=== PATIENT | male | born 1955 | race Caucasian/White ===

== ENCOUNTER 2022-01-29 05:48 | Day surgery (SDC) | payer BC ==
--- NOTE | 2022-01-28 16:56 | RAD REPORT ---
EXAM DESCRIPTION: Nati Delatorre (2 Views)01/28/2022 4:40 pm CLINICAL HISTORY: Preop for hernia repair COMPARISON: 2017 FINDINGS: The lungs appear clear of acute infiltrate. The heart is normal size. Postsurgical changes involve the chest IMPRESSION: No acute abnormalities displayed
[2022-01-28 17:03] LABS: Absolute Lymphocytes (CBC) 1.8 K/uL (0.7-4.9); Hematocrit 47.2 % (39.6-49.0); Lymphocytes % 24.9 % (15.3-44.8); MCV 95.4 fL (80-100); RBC Red Blood Cell Count 4.95 M/uL (4.33-5.43)
[2022-01-28 17:16] LABS: Potassium 4.1 mmol/L (3.5-5.1)
[2022-01-29] MEDS ORDERED: NA CHLORIDE 0.9% 1,000 ML ONE (06:43)
[2022-01-29] MEDS: CEFAZOLIN SODIUM 1 GM/VIAL ONE ×2 (07:07→07:30)
[2022-01-29] MEDS: BUPIVACAINE 0.5% Inj,MDV 50 mL VIAL ONE ×2 (07:07→07:48)
[2022-01-29] MEDS ORDERED: propofoL 200 MG/20 ML VIAL IV ONE (07:09)
[2022-01-29] MEDS ORDERED: LIDOCAINE 1% MPF 5 ML VIAL ONE (07:10)
[2022-01-29] MEDS ORDERED: MIDAZOLAM HCL 2 MG/2 ML INJ ONE (07:10)
[2022-01-29] MEDS ORDERED: FENTANYL CITR 100 MCG/2 ML ONE (07:10)
[2022-01-29] MEDS ORDERED: NS 0.9% VIAL 10 ML ONE (07:33)
[2022-01-29] MEDS ORDERED: dexAMETHasone 10 MG/ML VIAL ONE (07:46)
[2022-01-29] MEDS ORDERED: KETOROLAC 30 MG/ML INJ ONE (07:46)
[2022-01-29] MEDS ORDERED: ONDANSETRON 4 MG/2 ML VIAL ONE ×2 (08:22→09:41)
[2022-01-29] MEDS ORDERED: Mastisol Adhesive Liq ONE (08:42)
[2022-01-29] MEDS ORDERED: HYDROCODONE/APAP 7.5/325 MG TAB PO PRN (08:49)
--- NOTE | 2022-01-29 08:57 | P.OP ---
Date of Service: 01/29/22 Preop diagnosis: Left inguinal hernia Postop diagnosis: Same Procedure performed: Repair of left inguinal hernia Surgeon: Palmer Riddle MD Furniture Mechanic: TIFFANY Fitzpatrick Estimated blood loss: Minimal Specimen: None Findings: Direct left inguinal hernia Anesthesia: General Complications: None Drains: None Fluids and blood products: Non-applicable Disposition: Recovery room Operative note: Patient brought to the OR and placed in the supine position. General anesthesia begun. Patient prepped and draped in the usual sterile fashion. Marcaine 0.5% infiltrated in a field block fashion in the left groin. 15 blade used to make a 4 cm incision between the left pubic tubercle and the anterior iliac superior spine. Subcutaneous tissue identified and divided. Bleeding controlled with cautery. Kg's fascia identified and divided. Ilioinguinal nerve identified and retracted out of the field of dissection. Aponeurosis of the external abdominal oblique identified and mobilized inferiorly to expose the shelving edge. Aponeurosis opened through the external ring. The aponeurosis was very attenuated. Cord structures identified at the pubic tubercle and mobilized. Cord structures skeletonized and a large direct inguinal hernia was identified. The direct hernia was reduced into the peritoneal cavity. Floor was recreated. The conjoined tendon was sutured to the shelving edge starting at the pubic tubercle to create a new internal ring with #1 Prolene suture. Marlex mesh plug placed in the internal ring and secured with VersaTack stapler. Onlay mesh placed on the inguinal floor secured medially to the pubic tubercle, superiorly to the conjoined tendon, laterally to each other and inferiorly to the shelving edge. Cord structures and ilioinguinal nerve placed back in their anatomic location. As the aponeurosis was attenuated it was not closed. 3-0 chromic was used to close Kg's fascia. And 3-0 chromic was used to close skin. Sterile dressing applied. Patient awakened and taken to recovery room in good general condition. CC: Dr. Mady Griggs's office
[2022-01-29] MEDS ORDERED: PROMETHAZINE INJ 25 MG/ML AMP ONE (09:18)
[2022-01-29 09:19] VITALS: TEMP 97.1
[2022-01-29 12:59] VITALS: BP 136/54; O2SAT 95
== END 2022-01-29 12:55 | disposition home or self-care (01) ==
LOC: PRE 05:48
PROVIDERS: ATTEND Surgery
PROC: 0YU60JZ Supplement Left Inguinal Region with Synthetic Substitute, Open Approach (ICD-10-PCS; principal; 2022-01-29 07:30)
DX: K40.90 Unilateral inguinal hernia, without obstruction or gangrene, not specified as recurrent (principal)
CPT/HCPCS: 85025; 80048; 36415; 82947 ×2; 71046; 49505; J2704; J2550; J2250; J3010; J1100; J7030; J2405 ×2; J0690

== ENCOUNTER 2022-08-12 13:25 | Inpatient (IN) | payer BC ==
[2022-08-12 14:05] LABS: SARS-CoV-2 Antigen Rapid Res Negative (Negative)
--- OUTSIDE RECORDS SUMMARY | 2022-08-12 14:44 | XMS REPORT | Continuity of Care Document ---
:1955 Author Organization [facility] t Address [address] [place] [address] Care Team Providers Name Role Phone Mady Menchaca MD Primary Care Physician Mady Menchaca Attending Clinician Unavailable RALPH MANCIA Attending Clinician Unavailable PANCHITO AQUINO Attending Clinician Unavailable MADY MENCHACA Attending Clinician Unavailable LAB90 Attending Clinician Unavailable HELENA SOSA Attending Clinician Unavailable DEVON AVELAR Attending Clinician Unavailable KERON VANG Attending Clinician Unavailable KERON VANG Admitting Clinician Unavailable Payers Payer Name Policy Type Policy Number Effective Date Expiration Date [facility] 2 [id number] 2020 00:00:00 [employer] 6 [id number] Common Spiri t Blue Shield of - [facility] Problems Condition Condition Condition Status Onset Resolution Last Treating Co mments Source Name Details Category Date Date Treatment Clinician Date Subperiost Subperiost Disease Active K elsey eal eal 1-19 Seybold abscess of abscess of 00:00: - left left 00 Externa mastoid mastoid l Facial Facial Disease Active Vicenta cellulitis cellulitis 08-12 Se ybold 00:00: - 00 Externa l Statin Statin Disease Active Vicenta intoleranc intoleranc 08-12 Se ybold e e 00:00: - 00 Externa l PVD PVD Disease Active Vicenta (periphera (periphera 04-02 Se ybold l vascular l vascular 00:00: - disease) disease) 00 Uat Tester a l Allergic Allergic Disease Active Kelse y rhinitis rhinitis 18 Seybol d 00:00: - 00 Externa l Essential Essential Disease Active Vu y hypertensi hypertensi 618 Se ybold on - on - 00:00: - Controlled Controlled 00 Ex terna l Persistent Persistent Disease Active M ethodi atrial atrial 17 st fibrillati fibrillati 00:00: Ho spita on on l Morbid Morbid Disease Active 2016-[address] [facility] obesity obesity 1-26 [facility] with BMI with BMI 00:00: Medica l of of 00 Center 40.0-44.9, 40.0-44.9, adult adult Pericardia Pericardia Disease Active 2016-[address] l effusion l effusion - Carmella kes 00:00: Medical 00 Center Atrial Atrial Disease Active 2016-[address] [facility] flutter flutter - [facility] Acute Acute Disease Active 2016-[address] [facility] pulmonary pulmonary 08-16 [facility] edema edema 00:00: Medical 00 Center Acute Acute Disease Active 2016-[address] [facility] postoperat postoperat 08-15 Carmella kes jeff pain jeff pain 00:00: Medica l 00 Center Prerenal Prerenal Disease Active 2016-07 [facility] azotemia azotemia 08[facility]15 [facility] Center Thrombocyt Thrombocyt Disease Active 2016-[address] openia openia 08-15 [facility] Center SIRS SIRS Disease Active 2016-[address] [facility] (systemic (systemic 08-15 [facility] inflammato inflammato 00:00: Me dical ry ry 00 Center response response syndrome) syndrome) ACB x 3 ACB x 3 Disease Active 2016-[address] (06.13.17) (06.13.17) 08-[address] Taj Vang 00:00: Medical 00 Center Other Other Disease Active 2016-[address] [facility] specified specified 08-13 [facility] s hypotensio hypotensio 00:00: Me dical n n 00 Center Postoperat Postoperat Disease Active 2016-[address] jeff anemia jeff anemia 08-13 Carmella kes due to due to 00:00: Medical acute acute 00 Center blood loss blood loss Hyperglyce Hyperglyce Disease Active 2016-[address] segundo segundo 08-13 [facility] Acute Acute Disease Active 2016-[address] [facility] pulmonary pulmonary 08-13 [facility] insufficie insufficie 00:00: Me dical ncy ncy 00 Center following following thoracic thoracic surgery surgery Lactic Lactic Disease Active 2016-[address] [facility] acidosis acidosis 08-13 [facility] 00 Center Other Other Disease Active 2016-[address] [facility] [facility] shock shock 08-13 [facility] (HCC) (HCC) 00:00: Medical vasoplegic vasoplegic 00 Ce nter shock shock [id number] Epididymal Problem Co mmon mass [facility] [id number] Nodular Problem Comm on prostate [facility] [id number] Peyronie's Problem Comm on disease [facility] DM type 2 DM type 2 Disease Active Vu sey with with Seybold diabetic diabetic - mixed mixed Externa hyperlipid hyperlipid l emia emia Hyperchole Hyperchole Disease Active K elsey sterolemia sterolemia Se ybold - Externa l Coronary Coronary Disease Active [facility] artery artery [facility] Sleep Sleep Disease Active [facility] apnea apnea [facility] CPAP CPAP Disease Active [facility] (continuou (continuou Carmella kes s positive s positive Me dical airway airway Center pressure) pressure) dependence dependence Hypertensi Hypertensi Disease Active [facility] on on [facility] Atrial Atrial Disease Active [facility] fibrillati fibrillati Carmella kes on with on with Medical rapid rapid Center ventricula ventricula r response r response Hyperlipid Hyperlipid Disease Active [facility] emia emia [facility] Diabetes Diabetes Disease Active [facility] t mellitus mellitus [facility] type 2, type 2, Medical noninsulin noninsulin Ce nter dependent dependent GERD GERD Disease Active [facility] St (gastroeso (gastroeso Carmella kes phageal phageal Medical reflux reflux Center disease) disease) Obesity Obesity Disease Active [facility] Allergies, Adverse Reactions, Alerts Allergy Allergy Status Severity Reaction(s) Onset Inactive Treating Comm ents Source Name Type Date Date Clinician Simgenesis Garzaensi Active Rash Method i tin ty to 09-30 st adverse 00:00: Hospita reaction 00 l s to drug Metformi Propensi Active Diarrhea 2016-[address] [facility] n ty to 08-07 [facility] adverse 00:00: Medical reaction 00 Center s Simvasta Propensi Active Hives 2016-[address] [facility] [facility] tin ty to 08-07 [facility] adverse 00:00: Medical reaction 00 Center s Simvasta Propensi Active Rash 2016-07 Vicenta tin ty to 08-07 Seybold adverse 00:00: - reaction 00 Externa s l simvasta simvasta Active Unknown Commo n tin tin Spirit - [facility] Family History Family Member Diagnosis Comments Start Date Stop Date Source Natural father Cancer [facility] Natural father Coronary artery [facility] disease [facility] Natural father Diabetes [facility] Social History Social Habit Start Date Stop Date Quantity Comments Source History of Tobacco [facility] Use [facility] History [facility] Alcohol Frequency Medical Center History [facility] Alcohol Std Drinks Medica Center History [facility] Alcohol Binge Medical [address] [facility] Education 2022-08-12 2022-08-12 16 Vicenta Andinoold - 00:00:00 00:00:00 External Alcohol intake 2017-08-02 2017-08-02 Current drinker [facility] 00:00:00 00:00:00 of alcohol Medical Center (finding) History SDOH 2017-06-07 2017-06-[address] [facility] Alcohol Comment 00:00:00 00:00:00 Medical C enter Tobacco use and 2017-06-07 2017-06-07 Never used ZABRINA Veras exposure 00:00:00 00:00:00 Medical Center Sex [birth year] ZABRINA Veras 00:00:00 00:00:00 Medical Center Smoking Status Start Date Stop Date Source Never smoked tobacco Vicenta Seyb old - External Medications Ordered Filled Start Stop Current Ordering Indication Dosage Frequency Signature Comments Components Source Medication Medication Date Date Medication? Clinician (SIG) Name Name Aspirin 81 Yes 81mg Take 81 mg K elsey MG oral 1-19 by mouth Seybold Tablet 11:51: daily - Delayed 25 Externa Response l Multiple Yes 1{tbl} Take 1 Kelse y Vitamin 1-19 tablet by Darlene (Multi-Radha 10:57: mouth - min) oral 35 daily Externa Tablet l Cholecalcif Yes 1{capsu Take 1 K elsey ramses 50 MCG 1-19 le} capsule by Se staley (1999) 10:57: mouth - oral 35 daily Externa Capsule l Metoprolol Yes [id number] 50mg Take 1 K elsey Succinate 1-19 tablet (50 Seyb old 50 MG oral 00:00: mg total) - TABLET SR 00 by mouth Uat Tester a 24 HR daily l Furosemide Yes [id number] 20mg Take 1 K elsey 20 MG oral 1-19 tablet (20 Sey bold Tablet 00:00: mg total) - 00 by mouth Externa daily l Metformin Yes [id number] Every Vu sey HCl 500 MG -19 Tuesday, Seybol d oral Tablet 00:00: Tuesday - and Tuesday Externa l Metformin 2021-07- No [id number] 500mg Take 1 Vicenta HCl 500 MG 0-17 08- tablet Seybol d oral Tablet 00:00: 00:00 (500 mg - 00 :00 total) by Externa mouth l daily (with breakfast) Trulicity 2022- No [id number] .75mg Inject Vicenta 0.75 04-06- 0.75 mg Seybold MG/0.5ML 00:00: 00:00 into the - subcutaneou 00 :00 skin once Ext sandip s Solution a week l Pen-injecto r Metoprolol 2021-0 2022- No [id number] 50mg Take 1 Vicenta Succinate 7-13 - tablet (50 Sey bold 50 MG oral 00:00: 00:00 mg total) - TABLET SR 00 :00 by mouth 2 Exte rna 24 HR times l daily Jardiance 0 Yes [id number] TAKE ONE Vicenta 25 MG oral 5-11 BY MOUTH Seybo ld Tablet 00:00: DAILY - 00 Externa l Furosemide 2021-0 2022- No [id number] TAKE TWO Vicenta 20 MG oral 5-11 -19 BY MOUTH Seyb old Tablet 00:00: 00:00 DAILY - 00 :00 Externa l Pravastatin 0 Yes 10mg Take 10 mg Vicenta Sodium 10 3-09 by mouth Seybol d MG oral 08:09: daily Tablet 28 Vitamin E Yes 400U Take 400 Patty ey 400 units 3-09 units by Seybol d oral 08:09: mouth Capsule 28 daily Multiple Yes 1{tbl} Take 1 Kelse y Vitamin 3-09 tablet by ybjosafat (Multi-Radha 08:09: mouth min) oral 28 daily Tablet Cholecalcif Yes 1{capsu Take 1 K elsey ramses 50 MCG 3-09 le} capsule by Se staley (1999) 08:09: mouth oral 28 daily Capsule Pravastatin 2020-07 Yes 10mg Take 10 mg Vicenta Sodium 10 2-02 by mouth Seybol d MG oral 08:05: daily Tablet 22 Vitamin E 2020-07 Yes 400U Take 400 Patty ey 400 units 2-02 units by Seybol d oral 08:05: mouth Capsule 22 daily Multiple 2020-07 Yes 1{tbl} Take 1 Kelse y Vitamin 2-02 tablet by ybold (Multi-Radha 08:05: mouth min) oral 22 daily Tablet Cholecalcif 2020-07 Yes 1{capsu Take 1 K elsey ramses 50 MCG 2-02 le} capsule by Se staley (1999) 08:05: mouth oral 22 daily Capsule Omeprazole 0 Yes [id number] 20mg Take 1 Vicenta 20 MG oral 6-18 capsule Seybol d Delayed 00:00: (20 mg - Release 00 total) by Externa Capsule mouth l daily Cetirizine Yes [id number] 10mg Take 1 K elsey 10 MG oral 6-18 tablet (10 Sey bold Tablet 00:00: mg total) 00 by mouth daily Empaglifloz Yes [id number] 1{tbl} Take 1 Vicneta in 6-18 tablet by Seybold (Jardiance) 00:00: mouth 25 MG oral 00 daily Tablet Furosemide Yes [id number] 40mg Take 2 K elsey 20 MG oral 6-18 tablets Seybol d Tablet 00:00: (40 mg 00 total) by mouth daily Losartan Yes [id number] 50mg Take 1 Vu sey Potassium 6-18 tablet (50 Seyb old 50 MG oral 00:00: mg total) Tablet 00 by mouth daily Metoprolol Yes [id number] 50mg Take 1 K elsey Succinate 6-18 tablet (50 Seyb old 50 MG oral 00:00: mg total) TABLET SR 00 by mouth 2 24 HR times daily Omeprazole Yes [id number] 20mg Take 1 Vicenta 20 MG oral 6-18 capsule Seybol d Delayed 00:00: (20 mg Release 00 total) by Capsule mouth daily Pravastatin Yes [id number] 20mg Take 1 Vicenta Sodium 20 6-18 tablet (20 Seyb old MG oral 00:00: mg total) Tablet 00 by mouth 2 times daily Cetirizine Yes [id number] 10mg Take 1 K elsey 10 MG oral 6-18 tablet (10 Sey bold Tablet 00:00: mg total) 00 by mouth daily Empaglifloz Yes [id number] 1{tbl} Take 1 Vicenta in 6-18 tablet by Seybold (Jardiance) 00:00: mouth 25 MG oral 00 daily Tablet Furosemide Yes [id number] 40mg Take 2 K elsey 20 MG oral 6-18 tablets Seybol d Tablet 00:00: (40 mg 00 total) by mouth daily Losartan Yes [id number] 50mg Take 1 Vu sey Potassium 6-18 tablet (50 Seyb old 50 MG oral 00:00: mg total) Tablet 00 by mouth daily Metoprolol Yes [id number] 50mg Take 1 K elsey Succinate 6-18 tablet (50 Seyb old 50 MG oral 00:00: mg total) TABLET SR 00 by mouth 2 24 HR times daily Omeprazole Yes [id number] 20mg Take 1 Vicenta 20 MG oral 6-18 capsule Seybol d Delayed 00:00: (20 mg Release 00 total) by Capsule mouth daily Pravastatin Yes [id number] 20mg Take 1 Vicenta Sodium 20 -18 tablet (20 Seyb old MG oral 00:00: mg total) Tablet 00 by mouth 2 times daily Cetirizine 2022- No [id number] 10mg Take 1 Vicenta 10 MG oral -18 -19 tablet (10 Se ybold Tablet 00:00: 00:00 mg total) - 00 :00 by mouth Externa daily l Pravastatin 2022- No [id number] 20mg Take 1 Vicenta Sodium 20 -18 - tablet (20 Sey bold MG oral 00:00: 00:00 mg total) - Tablet 00 :00 by mouth 2 Externa times l daily apixaban Yes 5mg Q.5D Take 5 mg Meth jim (ELIQUIS) 5 -[address] mg tablet 09:46: (two) Hospita 53 times a l day. furosemide Yes 20mg QD Take 20 mg M ethodi (LASIX) 20 -[address] mg tablet 09:46: daily. Hospit a 53 l terbinafine 2018-0 Yes QD Apply Metho di HCl [address] (LamISIL) 1 09:46: daily. Hosp rogelio % cream 53 l pravastatin 2018-0 Yes 10mg QD Take 10 mg Methodi (PRAVACHOL) [address] 10 MG 09:46: daily. Hospita tablet 53 l cetirizine 2018-0 Yes 10mg QD Take 10 mg M ethodi (ZyrTEC) 10 -[address] MG tablet 09:46: daily. Hospit a 53 l losartan 2019-0 Yes 50mg QD Take 50 mg Met hodi (COZAAR) 50 -[address] MG tablet 09:46: daily. Hospit a 53 l CALCIUM Yes 1{tbl} QD Take [address] CITRATE/VIT - tablet by Jeannie patel FUNG D3 07:17: mouth Medical (CALCIUM 47 daily. [place] CITRATE + D ORAL) metoprolol Yes 50mg Q.5D Take [address] (TOPROL-XL) 08-02 by mouth 2 Carmella kes 50 MG 24 hr 07:15: (two) Medic al tablet 54 times Center daily. omeprazole Yes 20mg QD Take [address] (PRILOSEC) 08-02 by mouth [facility] 20 MG 07:15: daily. Medical capsule 54 [place] cetirizine Yes 10mg Take [address] (ZYRTEC) 10 08-02 by mouth Luke s MG tablet 07:15: as needed Med ical 54 for Center Allergies. multivitami Yes 1{tbl} QD Take [address] n per 08-02 tablet by Letty tablet 07:15: mouth Medical 54 daily. [place] FERROUS Yes 1{capsu QD Take 1 [facility] t FUMARATE/ - le} capsule by Carmella fischer T BCOMP,C 07:15: mouth Medical (SUPER B 54 daily. [place] COMPLEX ORAL) ascorbic Yes 1000mg QD Take 1,[address] acid, 1-09 mg by Letty vitamin C, 07:15: mouth Medica l (VITAMIN C) 54 daily. [place] 1000 MG tablet cholecalcif Yes 1{capsu QD Take [address] ramses, 08-02 le} capsule by Letty vitamin D3, 07:15: mouth Medic al (VITAMIN 54 daily. [place] D3) 2,000 unit Cap vitamin E Yes 400U QD Take [address] 400 UNIT 1-09 Units by aCrmellaSalemarked capsule 07:15: mouth Medical 54 daily. [place] glucosam-ch Yes 1{tbl} QD Take [address] ond-msm1-C- 08-02 tablet by Jeannie patel nighat-bor 07:15: mouth Medical [id number]- 54 daily. [place] 1 mg Tab KRILL/OM-3/ Yes 1{capsu QD Take [address] DHA/EPA/SUSIE 1- le} capsule by Carmella fischer SPHO/AST 07:15: mouth Medical (MEGARED 54 daily. Center OMEGA-3 KRILL OIL ORAL) acetaminoph Yes Superficial 1{tbl} Take [address] en-codeine 1-09 postoperati tablet by Letty (TYLENOL 07:15: ve wound mouth Medi georges #3) 300-30 54 infection, every 4 Center mg per initial (four) tablet encounter hours as needed for Pain. acetaminoph Yes Superficial 500mg Take [address] en 1-09 postoperati mg by Letty (TYLENOL) 07:15: ve wound mouth Med ical 500 MG 54 infection, every 6 Cent er tablet initial (six) encounter hours as needed for Pain. pravastatin 2016-07 Yes 40mg QD Take [address] (PRAVACHOL) 2-01 tablets [facility] 20 MG 00:00: (40 mg Medical tablet 00 total) by Center mouth daily. CoQ-10 CoQ-10 No CoQ-10 Multivitami Multivitami No Multivitam n n in Metoprolol Metoprolol No 1{capsu QD Metoprolol Succinate Succinate le} Succinate 50 MG 50 MG 50 MG Furosemide Furosemide No 1{table QD Furosemide 40 MG 40 MG t} 40 MG Vitamin D3 Vitamin D3 No 1{capsu QD Vitamin D3 50 MCG 50 MCG le} 50 MCG (1999) (1999) (1999) Pennsaid Pennsaid No Pennsaid Aspirin 81 Aspirin 81 No 1{table QD Aspirin 81 MG MG t} MG Cetirizine Cetirizine No 1{table QD Cetirizine HCl 10 MG HCl 10 MG t} HCl 10 MG Krill Oil Krill Oil No Krill Oil 500 MG 500 MG 500 MG Omeprazole Omeprazole No QD Omeprazole 20 MG 20 MG 20 MG Super B Super B No Super B Complex Complex Complex Probiotic Probiotic No Probiotic Jardiance Jardiance No 1{table QD Jardiance 25 MG 25 MG t} 25 MG Pravastatin Pravastatin No 1{table BID Pravastati Sodium 20 Sodium 20 t} n Sodium MG MG 20 MG Metamucil Metamucil No Metamucil CoQ-10 CoQ-10 No CoQ-10 Multivitami Multivitami No Multivitam n n in Metoprolol Metoprolol No 1{capsu QD Metoprolol Succinate Succinate le} Succinate 50 MG 50 MG 50 MG Furosemide Furosemide No 1{table QD Furosemide 40 MG 40 MG t} 40 MG Vitamin D3 Vitamin D3 No 1{capsu QD Vitamin D3 50 MCG 50 MCG le} 50 MCG (1999 UT) (1999 UT) (1999) Pennsaid Pennsaid No Pennsaid Aspirin 81 Aspirin 81 No 1{table QD Aspirin 81 MG MG t} MG Cetirizine Cetirizine No 1{table QD Cetirizine HCl 10 MG HCl 10 MG t} HCl 10 MG Krill Oil Krill Oil No Krill Oil 500 MG 500 MG 500 MG Omeprazole Omeprazole No QD Omeprazole 20 MG 20 MG 20 MG Super B Super B No Super B Complex Complex Complex Probiotic Probiotic No Probiotic Jardiance Jardiance No 1{table QD Jardiance 25 MG 25 MG t} 25 MG Pravastatin Pravastatin No 1{table BID Pravastati Sodium 20 Sodium 20 t} n Sodium MG MG 20 MG Metamucil Metamucil No Metamucil Immunizations Ordered Immunization Filled Immunization Date Status Commen ts Source Name Name Influenza Virus 2022-05-17 Completed Vicenta ybold Vaccine, 00:00:00 - External Quadrivalent, High Dose, Age 65 And Up Influenza Virus 2021-03-27 Completed Vicenta ybold Vaccine, 00:00:00 - External Quadrivalent, High Dose, Age 65 And Up Influenza Virus 2021-03-27 Completed Vicenta ybold Vaccine, 00:00:00 Quadrivalent, High Dose, Age 65 And Up Influenza Virus 2021-03-27 Completed Vicenta ybold Vaccine, 00:00:00 Quadrivalent, High Dose, Age 65 And Up Covid-19 Vaccine 2020-09-17 Completed Vicenta ugarte Moderna (Spikevax), 00:00:00 - Ext ernal Mrna-lnp, Denis Protein, Pf Covid-19 Vaccine 2020-09-17 Completed Vicenta ugarte (Moderna), Mrna-lnp, 00:00:00 Denis Protein, Pf, 100 Mcg/0.5ml,IM Covid-19 Vaccine 2020-09-17 Completed Vicenta ugarte Moderna (Spikevax), 00:00:00 Mrna-lnp, Denis Protein, Pf Covid-19 Vaccine 2020-08-15 Completed Vicenta ugarte Moderna (Spikevax), 00:00:00 - Ext ernal Mrna-lnp, Denis Protein, Pf Covid-19 Vaccine 2020-08-15 Completed Vicenta Yang eybold (Moderna), Mrna-lnp, 00:00:00 Denis Protein, Pf, 100 Mcg/0.5ml,IM Covid-19 Vaccine 2020-08-15 Completed Vicenta Yang eybold Moderna (Spikevax), 00:00:00 Mrna-lnp, Denis Protein, Pf Influenza Virus 2019-04-30 Completed Vicenta Se ybold Vaccine, age 6 months 00:00:00 - E xternal and up Influenza Virus 2019-04-30 Completed Vicenta Se ybold Vaccine, age 6 months 00:00:00 and up Influenza Virus 2019-04-30 Completed Vicenta Se ybold Vaccine, age 6 months 00:00:00 and up Shingles SQ 2017-08-16 Completed Vicenta Seybol d (Zostavax) 00:00:00 - External Shingles SQ 2017-08-16 Completed Vicenta Seybol d (Zostavax) 00:00:00 Shingles SQ 2017-08-16 Completed Vicenta Seybol d (Zostavax) 00:00:00 Tdap- (Boostrix, 2017-07-11 Completed Vicenta S eybold Adacel) 00:00:00 - External Pneumococcal Vaccine, 2017-07-11 Completed Vu sey Seybold Polysaccharide 00:00:00 - External Tdap- (Boostrix, 2017-07-11 Completed Vicenta S eybold Adacel) 00:00:00 Pneumococcal Vaccine, 2017-07-11 Completed Vu sey Seybold Polysaccharide 00:00:00 Tdap- (Boostrix, 2017-07-11 Completed Vicenta S eybold Adacel) 00:00:00 Pneumococcal Vaccine, 2017-07-11 Completed Vu sey Seybold Polysaccharide 00:00:00 Influenza Virus 2017-05-10 Completed Vicenta Se ybold Vaccine, age 6 months 00:00:00 - E xternal and up Influenza Virus 2017-05-10 Completed Vicenta Se ybold Vaccine, No Preserv, 00:00:00 - Ex ternal age 6 months and up Influenza Virus 2017-05-10 Completed Vicenta Se ybold Vaccine, age 6 months 00:00:00 and up Influenza Virus 2017-05-10 Completed Vicenta staley Vaccine, No Preserv, 00:00:00 age 6 months and up Influenza Virus 2017-05-10 Completed Vicenta martinesold Vaccine, age 6 months 00:00:00 and up Influenza Virus 2017-05-10 Completed Vicenta staley Vaccine, No Preserv, 00:00:00 age 6 months and up Vital Signs Vital Name Observation Time Observation Value Comments Source Systolic blood 2022-08-12 16:56:00 145 mm[Hg] Vicenta Seybold - pressure External Diastolic blood 2022-08-12 16:56:00 86 mm[Hg] Joe dlol Seybold - pressure External Heart rate 2022-08-12 16:56:00 83 /min Vicentabhupendra floresbold - External Body temperature 2022-08-12 16:56:00 37.44 Irma Patty flores Seybjosafat - External Respiratory rate 2022-08-12 16:56:00 14 /min Patty flores Seybold - External Body height 2022-08-12 16:56:00 195.6 cm Vicenta floresbold - External Body weight 2022-08-12 16:56:00 136.986 kg Vicenta floresbold - External BMI 2022-08-12 16:56:00 35.81 kg/m2 Vicenta floresbomaty - External Oxygen saturation in 2022-08-12 16:56:00 97 /min Vicenta Leahyrebeka - Arterial blood by External Pulse oximetry weight 2022-05-19 15:30:00 291.2 [lb_av] Common [facility] temperature 2022-05-19 15:30:00 98.2 [degF] Common [facility] bmi 2022-05-19 15:30:00 36.39 kg/m2 [facility] oximetry 2022-05-19 15:30:00 99 % [facility] respiratory rate 2022-05-19 15:30:00 18 /min Comm on [facility] blood pressure 2022-05-19 15:30:00 125 mm[Hg] Common [facility] systolic [facility] blood pressure 2022-05-19 15:30:00 64 mm[Hg] [facility] diastolic [facility] height 2022-05-19 15:30:00 75 [in_i] Common S pirit - [facility] Systolic blood 2021-09-30 14:03:00 120 mm[Hg] Vicenta Seybold pressure Diastolic blood 2021-09-30 14:03:00 70 mm[Hg] Kelse y Seybold pressure Heart rate 2021-09-30 14:03:00 86 /min Vicenta S eybold Body temperature 2021-09-30 14:03:00 35.56 Rima Patty ey Seybold Respiratory rate 2021-09-30 14:03:00 14 /min Patty ey Seybold Body height 2021-09-30 14:03:00 195.6 cm Vicenta Yang eybold Body weight 2021-09-30 14:03:00 138.347 kg Vicenta Yang eybold BMI 2021-09-30 14:03:00 36.17 kg/m2 Vicenta S eybold Systolic blood 2021-06-25 14:00:00 112 mm[Hg] Vicenta Seybold pressure Diastolic blood 2021-06-25 14:00:00 58 mm[Hg] Kelse y Seybold pressure Heart rate 2021-06-25 14:00:00 66 /min Vicenta Yang eybold Body temperature 2021-06-25 14:00:00 36.44 Irma Patty ey Seybold Respiratory rate 2021-06-25 14:00:00 14 /min Patty ey Seybold Body height 2021-06-25 14:00:00 195.6 cm Vicenta Yang eybold Body weight 2021-06-25 14:00:00 136.986 kg Vicenta Yang eybold BMI 2021-06-25 14:00:00 35.81 kg/m2 Vicenta Yang eybold Procedures This patient has no known procedures. Plan of Care Planned Activity Planned Date Details Comments Source Future Scheduled 2022-08-12 COVID-19 VACCINE (#1) [facility] Test 10:49:44 [code = COVID-19 VACCINE (#1)] Future Scheduled 2022-08-12 [facility] 10:49:44 [code = COLONOSCOPY SCREENING] Future Scheduled 2022-08-12 SHINGLES VACCINES (1 Met [facility] Test 10:49:44 of 2) [code = SHINGLES VACCINES (1 of 2)] Future Scheduled 2022-08-12 65+ [facility]UMOCOCCAL [facility] Test 10:49:44 VACCINE (1 - PCV) [code = 65+ PNEUMOCOCCAL VACCINE (1 - PCV)] Future Scheduled 2022-08-12 INFLUENZA VACCINE [facility] Test 10:49:44 [code = INFLUENZA VACCINE] Encounters Start End Encounter Admission Attending Care Care Encounter Source Date/Time Date/Time Type Type Clinicians Facility Department ID 2022-06-23 Outpatient [place] [facility] [id number] Common 09:45:07 Mady [id number] [facility] 2022-05-20 Outpatient [place], [facility] [id number] 2 Common 07:21:00 Mady [id number] [facility] 2022-05-19 Outpatient [place] [facility] [id number] 2 Common 15:15:03 Mady [id number] [facility] 2022-08-12 2022-08-12 Outpatient VICENTA MANCIA [id number] Vicenta 11:45:00 11:45:00 RALPH davis 2022-08-12 2022-08-12 Outpatient VICENTA MANCIA [id number] Vicenta 00:00:00 00:00:00 RALPH davis 2022-08-02 2022-08-02 (TEL) STLMLC STL[facility]C [id number] Co mmon 00:00:00 00:00:00 [facility] 2022-05-19 2022-05-19 OFFICE [facility] [id number] Co mmon 00:00:00 00:00:00 VISIT NEW [facility] it PT LEVEL 4 [facility] 2022-05-17 2022-05-17 Outpatient VICENTA AQUINO [id number] [place] 08:00:00 08:00:00 PANCHITO davis 2022-04-28 2022-04-28 Outpatient VICENTA AQUINO [id number] [place] 00:00:00 00:00:00 PANCHITO Seybol d 2022-04-06 2022-04-06 Outpatient VICENTA MENCHACA [id number] [place] 00:00:00 00:00:00 MADY Seybol d 2022-04-05 2022-04-05 Outpatient VICENTA AQUINO [id number] [place] 00:00:00 00:00:00 PANCHITO Seybol d 2022-04-05 2022-04-05 Outpatient VICENTA AQUINO [id number] [place] 00:00:00 00:00:00 PANCHITO Seybol d 2022-04-05 2022-04-05 Outpatient VICENTA AQUINO [id number] [place] 00:00:00 00:00:00 PANCHITO Seybol d 2022-04-02 2022-04-02 Outpatient LAB90 VICENTA CERRATO [id number] [place] 09:15:00 09:15:00 Seybol d 2022-04-02 2022-04-02 Outpatient VICENTA MENCHACA [id number] [place] 08:15:00 08:15:00 MADY Seybol d 2022-04-02 2022-04-02 Outpatient VICENTA AQUINO [id number] [place] 08:00:00 08:00:00 PANCHITO Seybol d 2022-03-26 2022-03-26 Outpatient LAB90 VICENTA CERRATO [id number] [place] 08:20:00 08:20:00 Seybol d 2022-02-03 2022-02-03 Outpatient VICENTA MENCHACA [id number] [place] 00:00:00 00:00:00 MADY Seybol d 2022-01-21 2022-01-21 Outpatient VICENTA MENCHACA [id number] [place] 00:00:00 00:00:00 MADY Seybol d 2022-01-21 2022-01-21 Outpatient VICENTA MENCHACA [id number] [place] 00:00:00 00:00:00 MADY Seybol d 2022-01-13 2022-01-13 Office Devon Menchaca [id number] [place] 14:30:00 14:45:00 Visit Mady Smith [id number] Se ybold Somogyi [id number] 2022-01-11 2022-01-11 Outpatient VICENTA SOSA [id number] [place] 08:30:00 08:30:00 HELENA Seybol d 2021-12-31 2021-12-31 Outpatient DEVON AVELAR VICENTA CERRATO [id number] [place] 16:15:00 16:15:00 Seybol d 2021-12-31 2021-12-31 Outpatient VICENTA MENCHACA [id number] [place] 00:00:00 00:00:00 MADY Seybol d 2021-12-09 2021-12-09 Outpatient VICENTA MENCHACA [id number] [place] 00:00:00 00:00:00 MADY Seybol d 2021-10-01 2021-10-01 Outpatient VICENTA MENCHACA [id number] [place] 08:00:00 08:00:00 MADY Seybol d 2021-09-30 2021-09-30 Outpatient LAB90 VICENTA CERRATO [id number] [place] 08:30:00 08:30:00 Seybol d 2021-09-30 2021-09-30 Office Devon Menchaca [id number] [place] 08:00:00 08:15:00 Visit Mady Smith [id number] Se ybold Somogyi [id number] 2021-09-28 2021-09-28 Outpatient LAB90 VICENTA CERRATO [id number] [place] 08:05:00 08:05:00 Seybol d 2021-09-28 2021-09-28 Outpatient VICENTA MENCHACA [id number] [place] 00:00:00 00:00:00 MADY Seybol d 2021-09-22 2021-09-22 Outpatient VICENTA MENCHACA [id number] [place] 08:30:00 08:30:00 MADY Seybol d 2021-06-25 2021-06-25 Office Devon Menchaca [id number] [place] 08:00:00 08:30:00 Visit Mady Smith [id number] Se rebeka Mercado [id number] 2021-06-23 2021-06-23 Outpatient LAB90 VICENTA CERRATO [id number] [place] 08:05:00 08:05:00 Seybol d 2021-03-27 2021-03-27 Outpatient VICENTA MENCHACA [id number] [place] 08:00:00 08:00:00 MADY Seybol d 2021-03-06 2021-03-06 Outpatient LAB90 VICENTA CERRATO [id number] [place] 08:10:00 08:10:00 Seybol d 2021-03-02 2021-03-02 Outpatient VICENTA MENCHACA [id number] [place] 08:00:00 08:00:00 MADY Seybol d Results Test Description Test Time Test Comments Results Result Comments Source WOUND CULTURE + GRAM STAIN 2017-07-30 08:55:00 Test Item Value Reference Range Interpretation Comme nts CULTURE ([facility]) (test code = 1095) 2+ Skin pramod GRAM STAIN RESULT (BEAKER) (test code = 1123) 1+ WBCs GRAM STAIN RESULT (AKER) (test code = 79916) No organisms seen WOUND CULTURE + GRAM [id number] 10:05:00 Test Item Value Reference Range Interpretation Comments CULTURE (BEAKER) (test code No growth = 1095) GRAM STAIN RESULT ([facility]) 1+ WBCs (test code = 1123) GRAM STAIN RESULT ([facility]) No organisms seen (test code = 89127) POCT-GLUCOSE [id number] 17:20:00 Test Item Value Reference Range Interpretation Comments POC-GLUCOSE METER 116 mg/dL 70-[address] [facility] 6720 ([facility]) (test code = [place] 1538) [address] POCT-GLUCOSE [id number] 12:18:00 Test Item Value Reference Range Interpretation Comments POC-GLUCOSE METER 92 mg/dL 70-[address] [facility] 6720 (BEAKER) (test code = ESPERANZA Baeza [facility] [address] 1538) POCT-GLUCOSE [id number] 08:06:00 Test Item Value Reference Range Interpretation Comments POC-GLUCOSE METER 115 mg/dL 70-[address] [facility] 6720 (BEAKER) (test code = ESPERANZA Baeza [facility] 1538) 658[address] CBC W/PLT COUNT & AUTO [id number] 05:55:00 Test Item Value Reference Range Interpretation Comments WHITE BLOOD CELL COUNT (BEAKER) 12.1 K/ L 3.5-10.5 H (test code = 775) RED BLOOD CELL COUNT (BEAKER) 3.10 M/ L 4.63-6.08 L (test code = 761) HEMOGLOBIN (BEAKER) (test code = 9.4 GM/DL 13.7-17.5 L 410) HEMATOCRIT (BEAKER) (test code = 29.9 % 40.1-51.0 L 411) MEAN CORPUSCULAR VOLUME (BEAKER) 96.5 fL 79.0-92.2 H (test code = 753) MEAN CORPUSCULAR HEMOGLOBIN 30.3 pg 25.7-32.2 (BEAKER) (test code = 751) MEAN CORPUSCULAR HEMOGLOBIN CONC 31.4 GM/DL 32.3-36.5 L (BEAKER) (test code = 752) RED CELL DISTRIBUTION WIDTH 13.9 % 11.6-14.4 (BEAKER) (test code = 412) PLATELET COUNT (BEAKER) (test 442 K/CU MM 150-450 code = 756) MEAN PLATELET VOLUME (BEAKER) 9.7 fL 9.4-12.4 (test code = 754) NUCLEATED RED BLOOD CELLS 0 /100 WBC 0-0 (BEAKER) (test code = 413) NEUTROPHILS RELATIVE PERCENT 75 % (BEAKER) (test code = 429) LYMPHOCYTES RELATIVE PERCENT 13 % (BEAKER) (test code = 430) MONOCYTES RELATIVE PERCENT 9 % (BEAKER) (test code = 431) EOSINOPHILS RELATIVE PERCENT 2 % (BEAKER) (test code = 432) BASOPHILS RELATIVE PERCENT 1 % (BEAKER) (test code = 437) NEUTROPHILS ABSOLUTE COUNT 9.06 K/ L 1.78-5.38 H (BEAKER) (test code = 670) LYMPHOCYTES ABSOLUTE COUNT 1.60 K/ L 1.32-3.57 (BEAKER) (test code = 414) MONOCYTES ABSOLUTE COUNT (BEAKER) 1.05 K/ L 0.30-0.82 H (test code = 415) EOSINOPHILS ABSOLUTE COUNT 0.21 K/ L 0.04-0.54 (BEAKER) (test code = 416) BASOPHILS ABSOLUTE COUNT (BEAKER) 0.07 K/ L 0.01-0.08 (test code = 417) IMMATURE GRANULOCYTES-RELATIVE 1 % 0-1 PERCENT (BEAKER) (test code = 2801) BASIC METABOLIC [id number] 05:49:00 Test Item Value Reference Range Interpretation Comments SODIUM (BEAKER) 139 meq/L 136-145 (test code = 381) POTASSIUM (BEAKER) 4.6 meq/L 3.5-5.1 (test code = 379) CHLORIDE (BEAKER) 101 meq/L 98-107 (test code = 382) CO2 (BEAKER) (test 29 meq/L 22-29 code = 355) BLOOD UREA NITROGEN 21 mg/dL 7-21 (BEAKER) (test code = 354) CREATININE (BEAKER) 0.97 mg/dL 0.57-1.25 (test code = 358) GLUCOSE RANDOM 112 mg/dL 70-105 H (BEAKER) (test code = 652) CALCIUM (BEAKER) 9.3 mg/dL 8.4-10.2 (test code = 697) EGFR (BEAKER) (test 78 mL/min/1.73 ESTIMA JAVIER GFR IS code = 1092) sq m NOT ACCURATE CREATININE CLEARANCE IN PREDICTING GLOMERULAR FILTRATION RATE . ESTIMATED GFR I S NOT APPLICABLE FOR DIALYSIS PATIEN TS. POCT-GLUCOSE [id number] 20:52:00 Test Item Value Reference Range Interpretation Comments POC-GLUCOSE METER 158 mg/dL 70-[address] [facility] 6720 (BEAKER) (test code = ESPERANZA [place] 1538) [address] POCT-GLUCOSE [id number] 17:59:00 Test Item Value Reference Range Interpretation Comments POC-GLUCOSE METER 137 mg/dL 70-110 H TESTED AT [facility] 6720 (BEAKER) (test code = ESP[place] 1538) [address] RAD, CHEST, 2 [id number] 17:09:00Reason for exam:->pleural effusionFINAL REPORT TECHNIQUE: Frontal, lateral, and bilateral decubitus chest radiographs dated 06/23/2017. CLINICAL HISTORY: Pleural effusion COMPARISON STUDY: Chest radiograph dated 06/19/2017 FINDINGS: Lungs are clear. There is a small left pleural effusion with evidence of layering on the decubitus view. No pneumothorax. Cardiomediastinal silhouette is stable in size. No pulmonary edema. Midline sternotomy wires are intact and well aligned. No fracture. IMPRESSION: Layering, smallleft pleural effusion. Signed: Saskia Carreon MDReport Verified Date/Time: 06/23/2017 17:09:10 Reading Location: [facility] Radiology Reading Room POCT-GLUCOSE [id number] 13:12:00 Test Item Value Reference Range Interpretation Comments POC-GLUCOSE METER 123 mg/dL 70-[address] [facility] 6720 ([facility]) (test code = [facility] 1538) [address] BASIC METABOLIC [id number] 07:42:00 Test Item Value Reference Range Interpretation Comments SODIUM (BEAKER) 139 meq/L 136-145 (test code = 381) POTASSIUM (BEAKER) 4.6 meq/L 3.5-5.1 (test code = 379) CHLORIDE (BEAKER) 100 meq/L 98-107 (test code = 382) CO2 (BEAKER) (test 31 meq/L 22-29 H code = 355) BLOOD UREA NITROGEN 23 mg/dL 7-21 H (BEAKER) (test code = 354) CREATININE (BEAKER) 0.95 mg/dL 0.57-1.25 (test code = 358) GLUCOSE RANDOM 111 mg/dL 70-105 H (BEAKER) (test code = 652) CALCIUM (BEAKER) 9.4 mg/dL 8.4-10.2 (test code = 697) EGFR (BEAKER) (test 80 mL/min/1.73 ESTIMA JAVIER GFR IS code = 1092) sq m NOT ACCURATE CREATININE CLEARANCE IN PREDICTING GLOMERULAR FILTRATION RATE . ESTIMATED GFR I S NOT APPLICABLE FOR DIALYSIS PATIEN TS. POCT-GLUCOSE [id number] 07:41:00 Test Item Value Reference Range Interpretation Comments POC-GLUCOSE METER 112 mg/dL 70-[address] [facility] 6720 (BEAKER) (test code = ESPER[place] 1533) [address] CBC W/PLT COUNT & AUTO [id number] 07:11:00 Test Item Value Reference Range Interpretation Comments WHITE BLOOD CELL COUNT (BEAKER) 10.9 K/ L 3.5-10.5 H (test code = 775) RED BLOOD CELL COUNT (BEAKER) 3.00 M/ L 4.63-6.08 L (test code = 761) HEMOGLOBIN (BEAKER) (test code = 9.2 GM/DL 13.7-17.5 L 410) HEMATOCRIT (BEAKER) (test code = 29.1 % 40.1-51.0 L 411) MEAN CORPUSCULAR VOLUME (BEAKER) 97.0 fL 79.0-92.2 H (test code = 753) MEAN CORPUSCULAR HEMOGLOBIN 30.7 pg 25.7-32.2 (BEAKER) (test code = 751) MEAN CORPUSCULAR HEMOGLOBIN CONC 31.6 GM/DL 32.3-36.5 L (BEAKER) (test code = 752) RED CELL DISTRIBUTION WIDTH 13.9 % 11.6-14.4 (BEAKER) (test code = 412) PLATELET COUNT (BEAKER) (test 387 K/CU MM 150-450 code = 756) MEAN PLATELET VOLUME (BEAKER) 9.7 fL 9.4-12.4 (test code = 754) NUCLEATED RED BLOOD CELLS 0 /100 WBC 0-0 (BEAKER) (test code = 413) NEUTROPHILS RELATIVE PERCENT 75 % (BEAKER) (test code = 429) LYMPHOCYTES RELATIVE PERCENT 13 % (BEAKER) (test code = 430) MONOCYTES RELATIVE PERCENT 9 % (BEAKER) (test code = 431) EOSINOPHILS RELATIVE PERCENT 2 % (BEAKER) (test code = 432) BASOPHILS RELATIVE PERCENT 0 % (BEAKER) (test code = 437) NEUTROPHILS ABSOLUTE COUNT 8.15 K/ L 1.78-5.38 H (BEAKER) (test code = 670) LYMPHOCYTES ABSOLUTE COUNT 1.39 K/ L 1.32-3.57 (BEAKER) (test code = 414) MONOCYTES ABSOLUTE COUNT (BEAKER) 0.97 K/ L 0.30-0.82 H (test code = 415) EOSINOPHILS ABSOLUTE COUNT 0.23 K/ L 0.04-0.54 (BEAKER) (test code = 416) BASOPHILS ABSOLUTE COUNT (BEAKER) 0.04 K/ L 0.01-0.08 (test code = 417) IMMATURE GRANULOCYTES-RELATIVE 1 % 0-1 PERCENT (BEAKER) (test code = 2801) POCT-GLUCOSE [id number] 20:52:00 Test Item Value Reference Range Interpretation Comments POC-GLUCOSE METER 142 mg/dL 70-110 H TESTED AT [place] [address] ([facility]) (test code = [facility] 1538) [address] POCT-GLUCOSE [id number] 17:25:00 Test Item Value Reference Range Interpretation Comments POC-GLUCOSE METER 122 mg/dL 70-110 H TESTED AT [place] [address] ([facility]) (test code = [facility] 1538) [address] POCT-GLUCOSE [id number] 12:07:00 Test Item Value Reference Range Interpretation Comments POC-GLUCOSE METER 128 mg/dL 70-110 H TESTED AT [place] [address] ([facility]) (test code = [facility] 1538) [address]908 POCT-GLUCOSE [id number] 07:30:00 Test Item Value Reference Range Interpretation Comments POC-GLUCOSE METER 115 mg/dL 70-110 H TESTED AT [place] [address] ([facility]) (test code = [facility] 1538) [address] [id number] 04:41:00 Test Item Value Reference Range Interpretation Comments MAGNESIUM (BEAKER) (test code = 2.3 mg/dL 1.6-2.6 627) BASIC METABOLIC [id number] 04:41:00 Test Item Value Reference Range Interpretation Comments SODIUM (BEAKER) 137 meq/L 136-145 (test code = 381) POTASSIUM (BEAKER) 4.2 meq/L 3.5-5.1 (test code = 379) CHLORIDE (BEAKER) 100 meq/L 98-107 (test code = 382) CO2 (BEAKER) (test 30 meq/L 22-29 H code = 355) BLOOD UREA NITROGEN 24 mg/dL 7-21 H (BEAKER) (test code = 354) CREATININE (BEAKER) 0.89 mg/dL 0.57-1.25 (test code = 358) GLUCOSE RANDOM 105 mg/dL 70-105 (BEAKER) (test code = 652) CALCIUM (BEAKER) 9.1 mg/dL 8.4-10.2 (test code = 697) EGFR (BEAKER) (test 87 mL/min/1.73 ESTIMA JAVIER GFR IS code = 1092) sq m NOT ACCURATE CREATININE CLEARANCE IN PREDICTING GLOMERULAR FILTRATION RATE . ESTIMATED GFR I S NOT APPLICABLE FOR DIALYSIS PATIEN TS. CBC W/PLT COUNT & AUTO [id number] 04:28:00 Test Item Value Reference Range Interpretation Comments WHITE BLOOD CELL COUNT (BEAKER) 12.6 K/ L 3.5-10.5 H (test code = 775) RED BLOOD CELL COUNT (BEAKER) 3.04 M/ L 4.63-6.08 L (test code = 761) HEMOGLOBIN (BEAKER) (test code = 9.4 GM/DL 13.7-17.5 L 410) HEMATOCRIT (BEAKER) (test code = 28.9 % 40.1-51.0 L 411) MEAN CORPUSCULAR VOLUME (BEAKER) 95.1 fL 79.0-92.2 H (test code = 753) MEAN CORPUSCULAR HEMOGLOBIN 30.9 pg 25.7-32.2 (BEAKER) (test code = 751) MEAN CORPUSCULAR HEMOGLOBIN CONC 32.5 GM/DL 32.3-36.5 (BEAKER) (test code = 752) RED CELL DISTRIBUTION WIDTH 13.8 % 11.6-14.4 (BEAKER) (test code = 412) PLATELET COUNT (BEAKER) (test 357 K/CU MM 150-450 code = 756) MEAN PLATELET VOLUME (BEAKER) 10.4 fL 9.4-12.4 (test code = 754) NUCLEATED RED BLOOD CELLS 0 /100 WBC 0-0 (BEAKER) (test code = 413) NEUTROPHILS RELATIVE PERCENT 74 % (BEAKER) (test code = 429) LYMPHOCYTES RELATIVE PERCENT 13 % (BEAKER) (test code = 430) MONOCYTES RELATIVE PERCENT 9 % (BEAKER) (test code = 431) EOSINOPHILS RELATIVE PERCENT 3 % (BEAKER) (test code = 432) BASOPHILS RELATIVE PERCENT 0 % (BEAKER) (test code = 437) NEUTROPHILS ABSOLUTE COUNT 9.27 K/ L 1.78-5.38 H ([facility]) (test code = 670) LYMPHOCYTES ABSOLUTE COUNT 1.66 K/ L 1.32-3.57 ([facility]) (test code = 414) MONOCYTES ABSOLUTE COUNT (AKER) 1.07 K/ L 0.30-0.82 H (test code = 415) EOSINOPHILS ABSOLUTE COUNT 0.32 K/ L 0.04-0.54 (AKER) (test code = 416) BASOPHILS ABSOLUTE COUNT ([facility]) 0.04 K/ L 0.01-0.08 (test code = 417) IMMATURE GRANULOCYTES-RELATIVE 2 % 0-1 H PERCENT ([facility]) (test code = 2801) POCT-GLUCOSE [id number] 20:55:00 Test Item Value Reference Range Interpretation Comments POC-GLUCOSE METER 147 mg/dL 70-110 H TESTED AT [place] [address] ([facility]) (test code = [facility] 1538) [address] POCT-GLUCOSE [id number] 17:47:00 Test Item Value Reference Range Interpretation Comments POC-GLUCOSE METER 98 mg/dL 70-110 TESTED AT [place] [address] ([facility]) (test code = [facility] [employer] [facility] [address] 1538) POCT-GLUCOSE [id number] 12:30:00 Test Item Value Reference Range Interpretation Comments POC-GLUCOSE METER 89 mg/dL 70-110 TESTED AT [place] [address] ([facility]) (test code = [facility] [employer] [facility] [address] 1538) POCT-GLUCOSE [id number] 07:23:00 Test Item Value Reference Range Interpretation Comments POC-GLUCOSE METER 103 mg/dL 70-110 TESTED AT [place] [address] ([facility]) (test code = [facility] [employer] [facility] 1538) [address] POCT-GLUCOSE [id number] 20:27:00 Test Item Value Reference Range Interpretation Comments POC-GLUCOSE METER 137 mg/dL 70-110 H TESTED AT [place] [address] ([facility]) (test code = [facility] [employer] [facility] 1538) [address] POCT-GLUCOSE [id number] 16:49:00 Test Item Value Reference Range Interpretation Comments POC-GLUCOSE METER 116 mg/dL 70-110 H TESTED AT [place] [address] ([facility]) (test code = [facility] 1538) [address] POCT-GLUCOSE [id number] 12:13:00 Test Item Value Reference Range Interpretation Comments POC-GLUCOSE METER 115 mg/dL 70-110 H TESTED AT [place] [address] ([facility]) (test code = ESPERANZA Baeza [facility] 1538) [address] POCT-GLUCOSE [id number] 07:37:00 Test Item Value Reference Range Interpretation Comments POC-GLUCOSE METER 123 mg/dL 70-110 H TESTED AT [place] [address] (BEAKER) (test code = [facility] Fel[employer] [facility] 1538) [address] BASIC METABOLIC [id number] 05:30:00 Test Item Value Reference Range Interpretation Comments SODIUM (BEAKER) 140 meq/L 136-145 (test code = 381) POTASSIUM (BEAKER) 4.8 meq/L 3.5-5.1 (test code = 379) CHLORIDE (BEAKER) 103 meq/L 98-107 (test code = 382) CO2 (BEAKER) (test 29 meq/L 22-29 code = 355) BLOOD UREA NITROGEN 19 mg/dL 7-21 (BEAKER) (test code = 354) CREATININE (BEAKER) 0.78 mg/dL 0.57-1.25 (test code = 358) GLUCOSE RANDOM 114 mg/dL 70-105 H (BEAKER) (test code = 652) CALCIUM (BEAKER) 9.1 mg/dL 8.4-10.2 (test code = 697) EGFR (BEAKER) (test 101 mL/min/1.73 ESTIM ATED GFR IS code = 1092) sq m NOT ACCURATE CREATININE CLEARANCE IN PREDICTING GLOMERULAR FILTRATION RATE . ESTIMATED GFR I S NOT APPLICABLE FOR DIALYSIS PATIEN TS. POCT-GLUCOSE [id number] 20:44:00 Test Item Value Reference Range Interpretation Comments POC-GLUCOSE METER 201 mg/dL 70-110 H TESTED AT [place] [address] (BEAKER) (test code = [facility] 1538) [address] POCT-GLUCOSE [id number] 17:22:00 Test Item Value Reference Range Interpretation Comments POC-GLUCOSE METER 173 mg/dL 70-110 H TESTED AT [place] [address] ([facility]) (test code = [facility] 1538) 6[address] POCT-GLUCOSE [id number] 13:59:00 Test Item Value Reference Range Interpretation Comments POC-GLUCOSE METER 114 mg/dL 70-[address] [facility] 6720 (BEAKER) (test code = ESP[place] 1538) [address] RAD, CHEST, 1 VIEW, NON [id number] 11:14:00Reason for exam:->s/p pericardial windowShould this be performed at the bedside?->YesFINAL REPORT Chest dated 06/19/2017 Clinical Information: s/p pericardial window Comment: Heart is enlarged. Pulmonary vasculature is indistinct. Interstitial disease is seen bilaterally suggestive of vascular congestion. Subsegmental atelectasis is seen in the left lower lobe. There is trace left pleural effusion. IMPRESSION: No interval change. Signed: Raz Kamaraeport Verified Date/Time: 06/19/2017 11:14:12 Reading Location: [address] Body Reading Room [id number] 10:52:00 Test Item Value Reference Range Interpretation Comments MAGNESIUM (BEAKER) (test code = 1.9 mg/dL 1.6-2.6 627) BASIC METABOLIC [id number] 10:52:00 Test Item Value Reference Range Interpretation Comments SODIUM (BEAKER) 138 meq/L 136-145 (test code = 381) POTASSIUM (BEAKER) 4.1 meq/L 3.5-5.1 (test code = 379) CHLORIDE (BEAKER) 104 meq/L 98-107 (test code = 382) CO2 (BEAKER) (test 26 meq/L 22-29 code = 355) BLOOD UREA NITROGEN 23 mg/dL 7-21 H (BEAKER) (test code = 354) CREATININE (BEAKER) 0.74 mg/dL 0.57-1.25 (test code = 358) GLUCOSE RANDOM 124 mg/dL 70-105 H (BEAKER) (test code = 652) CALCIUM (BEAKER) 8.8 mg/dL 8.4-10.2 (test code = 697) EGFR (BEAKER) (test 107 mL/min/1.73 ESTIM ATED GFR IS code = 1092) sq m NOT ACCURATE CREATININE CLEARANCE IN PREDICTING GLOMERULAR FILTRATION RATE . ESTIMATED GFR I S NOT APPLICABLE FOR DIALYSIS PATIEN TS. PLATELET AGGREGATION: FUNCTION [id number] 10:18:00 Test Item Value Reference Range Interpretation Comments WEAK ADP 98 % 60-91 H RESULT(BEAKER) (test code = 2135) PLATELET FUNCTION 60-100% indicates SCREEN INTERP (BEAKER) normal platelet (test code = 2173) function [id number] Ralph Olea M.D. (BEAKER) (test code = (electonic signature) 1671) PLATELET COUNT AGG 273 K/CU MM 150-450 (BEAKER) (test code = 3363) for patients on clopidogrel in past two weeksC W/PLT COUNT & AUTO [id number] 10:07:00 Test Item Value Reference Range Interpretation Comments WHITE BLOOD CELL COUNT (BEAKER) 11.9 K/ L 3.5-10.5 H (test code = 775) RED BLOOD CELL COUNT (BEAKER) 3.05 M/ L 4.63-6.08 L (test code = 761) HEMOGLOBIN (BEAKER) (test code = 9.5 GM/DL 13.7-17.5 L 410) HEMATOCRIT (BEAKER) (test code = 28.5 % 40.1-51.0 L 411) MEAN CORPUSCULAR VOLUME (BEAKER) 93.4 fL 79.0-92.2 H (test code = 753) MEAN CORPUSCULAR HEMOGLOBIN 31.1 pg 25.7-32.2 (BEAKER) (test code = 751) MEAN CORPUSCULAR HEMOGLOBIN CONC 33.3 GM/DL 32.3-36.5 (BEAKER) (test code = 752) RED CELL DISTRIBUTION WIDTH 13.5 % 11.6-14.4 (BEAKER) (test code = 412) PLATELET COUNT (BEAKER) (test 269 K/CU MM 150-450 code = 756) MEAN PLATELET VOLUME (BEAKER) 9.8 fL 9.4-12.4 (test code = 754) NUCLEATED RED BLOOD CELLS 0 /100 WBC 0-0 (BEAKER) (test code = 413) NEUTROPHILS RELATIVE PERCENT 77 % (BEAKER) (test code = 429) LYMPHOCYTES RELATIVE PERCENT 12 % (BEAKER) (test code = 430) MONOCYTES RELATIVE PERCENT 10 % (BEAKER) (test code = 431) EOSINOPHILS RELATIVE PERCENT 1 % (BEAKER) (test code = 432) BASOPHILS RELATIVE PERCENT 0 % (BEAKER) (test code = 437) NEUTROPHILS ABSOLUTE COUNT 9.18 K/ L 1.78-5.38 H (BEAKER) (test code = 670) LYMPHOCYTES ABSOLUTE COUNT 1.37 K/ L 1.32-3.57 (BEAKER) (test code = 414) MONOCYTES ABSOLUTE COUNT (BEAKER) 1.13 K/ L 0.30-0.82 H (test code = 415) EOSINOPHILS ABSOLUTE COUNT 0.09 K/ L 0.04-0.54 (BEAKER) (test code = 416) BASOPHILS ABSOLUTE COUNT (BEAKER) 0.03 K/ L 0.01-0.08 (test code = 417) IMMATURE GRANULOCYTES-RELATIVE 1 % 0-1 PERCENT (BEAKER) (test code = 2801) CALCIUM, [id number] 09:56:00 Test Item Value Reference Range Interpretation Comments CALCIUM IONIZED (BEAKER) (test 1.06 mmol/L 1.12-1.27 L code = 698) PH, BLOOD (BEAKER) (test code = 7.48 1810) HGB/HCT (H&H) - STAT [id number] 09:55:00 Test Item Value Reference Range Interpretation Comments HEMOGLOBIN (BEAKER) (test code = 10.3 g/dL 13.0-16.8 L 410) HEMATOCRIT (BEAKER) (test code = 30.0 % 40.0-50.0 L 411) POTASSIUM-STAT [id number] 09:55:00 Test Item Value Reference Range Interpretation Comments POTASSIUM (BEAKER) (test code = 3.9 meq/L 3.6-5.5 379) SODIUM NA-STAT [id number] 09:55:00 Test Item Value Reference Range Interpretation Comments SODIUM (BEAKER) (test code = 381) 135 meq/L 135-148 GLUCOSE-STAT [id number] 09:55:00 Test Item Value Reference Range Interpretation Comments GLUCOSE RANDOM (BEAKER) (test code 120 mg/dL 70-110 H = 652) BLOOD GAS, [id number] 09:55:00 Test Item Value Reference Range Interpretation Comments PH ARTERIAL (BEAKER) (test code = 7.50 7.35-7.45 H 383) PCO2 ARTERIAL (BEAKER) (test code 38 mmHg 35-45 = 384) PO2 ARTERIAL (BEAKER) (test code = 101 mmHg 80-90 H 385) O2 SATURATION ARTERIAL (BEAKER) 98.3 % 96.0-97.0 H (test code = 386) HCO3 ARTERIAL (BEAKER) (test code 29 mmol/L 21-29 = 388) BASE EXCESS ARTERIAL (BEAKER) 5.3 mmol/L -2.0-3.0 H (test code = 387) PATIENT TEMPERATURE (BEAKER) (test 35.8 C code = 1818) FIO2 (BEAKER) (test code = 1819) 44.0 % BASIC METABOLIC [id number] 07:39:00 Test Item Value Reference Range Interpretation Comments SODIUM (BEAKER) 139 meq/L 136-145 (test code = 381) POTASSIUM (BEAKER) 3.9 meq/L 3.5-5.1 (test code = 379) CHLORIDE (BEAKER) 101 meq/L 98-107 (test code = 382) CO2 (BEAKER) (test 29 meq/L 22-29 code = 355) BLOOD UREA NITROGEN 24 mg/dL 7-21 H (BEAKER) (test code = 354) CREATININE (BEAKER) 0.78 mg/dL 0.57-1.25 (test code = 358) GLUCOSE RANDOM 110 mg/dL 70-105 H (BEAKER) (test code = 652) CALCIUM (BEAKER) 9.1 mg/dL 8.4-10.2 (test code = 697) EGFR (BEAKER) (test 101 mL/min/1.73 ESTIM ATED GFR IS code = 1092) sq m NOT ACCURATE CREATININE CLEARANCE IN PREDICTING GLOMERULAR FILTRATION RATE . ESTIMATED GFR I S NOT APPLICABLE FOR DIALYSIS PATIEN TS. CBC W/PLT COUNT & AUTO [id number] 06:49:00 Test Item Value Reference Range Interpretation Comments WHITE BLOOD CELL COUNT (BEAKER) 11.6 K/ L 3.5-10.5 H (test code = 775) RED BLOOD CELL COUNT (BEAKER) 3.17 M/ L 4.63-6.08 L (test code = 761) HEMOGLOBIN (BEAKER) (test code = 9.8 GM/DL 13.7-17.5 L 410) HEMATOCRIT (BEAKER) (test code = 30.3 % 40.1-51.0 L 411) MEAN CORPUSCULAR VOLUME (BEAKER) 95.6 fL 79.0-92.2 H (test code = 753) MEAN CORPUSCULAR HEMOGLOBIN 30.9 pg 25.7-32.2 (BEAKER) (test code = 751) MEAN CORPUSCULAR HEMOGLOBIN CONC 32.3 GM/DL 32.3-36.5 (BEAKER) (test code = 752) RED CELL DISTRIBUTION WIDTH 13.5 % 11.6-14.4 (BEAKER) (test code = 412) PLATELET COUNT (BEAKER) (test 274 K/CU MM 150-450 code = 756) MEAN PLATELET VOLUME (BEAKER) 9.8 fL 9.4-12.4 (test code = 754) NUCLEATED RED BLOOD CELLS 0 /100 WBC 0-0 (BEAKER) (test code = 413) NEUTROPHILS RELATIVE PERCENT 76 % (BEAKER) (test code = 429) LYMPHOCYTES RELATIVE PERCENT 11 % (BEAKER) (test code = 430) MONOCYTES RELATIVE PERCENT 11 % (BEAKER) (test code = 431) EOSINOPHILS RELATIVE PERCENT 2 % (BEAKER) (test code = 432) BASOPHILS RELATIVE PERCENT 1 % (BEAKER) (test code = 437) NEUTROPHILS ABSOLUTE COUNT 8.82 K/ L 1.78-5.38 H (BEAKER) (test code = 670) LYMPHOCYTES ABSOLUTE COUNT 1.22 K/ L 1.32-3.57 L (BEAKER) (test code = 414) MONOCYTES ABSOLUTE COUNT (BEAKER) 1.25 K/ L 0.30-0.82 H (test code = 415) EOSINOPHILS ABSOLUTE COUNT 0.17 K/ L 0.04-0.54 (BEAKER) (test code = 416) BASOPHILS ABSOLUTE COUNT (BEAKER) 0.07 K/ L 0.01-0.08 (test code = 417) IMMATURE GRANULOCYTES-RELATIVE 1 % 0-1 PERCENT (BEAKER) (test code = 2801) POCT-GLUCOSE [id number] 21:45:00 Test Item Value Reference Range Interpretation Comments POC-GLUCOSE METER 265 mg/dL 70-[address] [facility] 6720 ([facility]) (test code = [place] 1538) [address] RAD, CHEST, 2 [id number] 17:35:00Reason for exam:->preopShould this be performed at the bedside?->NoFINAL REPORT PA and Lateral views of the chest dated 06/18/2017 COMPARISON: June 17, 2017 Clinical information: preop Comment: Study is somewhat limited secondary to motion sachi fact. Heart is enlarged. Pulmonary vasculature is unremarkable. Subsegmental atelectasis is seen in both lower lobes. The rest of the lungs Are clear. No pulmonary infiltrate or pleural effusion is present. Impression: Cardiomegaly without pulmonary edema. Signed: Raz Kamaraeport Verified Date/Time: 06/18/2017 17:35:12 Reading Location: [facility] C013Y CT Body Reading Room [id number] 17:25:00 Test Item Value Reference Range Interpretation Comments PARTIAL THROMBOPLASTIN TIME 33.4 seconds 22.5-36.0 (BEShowpitch) (test code = 760) PROTHROMBIN [id number] 17:24:00 Test Item Value Reference Range Interpretation Comments PROTIME (E-Blink) (test code = 16.7 seconds 11.7-14.7 H 759) INR (E-Blink) (test code = 370) 1.4 <=5.9 RECOMMENDED COUMADIN/WARFARIN INR THERAPY RANGESSTANDARD DOSE: 2.0 - 3.0 Includes: PROPHYLAXIS for venous thrombosis, systemic embolization; TREATMENT for venous thrombosis and/or pulmonary embolus.HIGH RISK: Target INR is 2.5-3.5 for patients with mechanical heart valves.POCT-GLUCOSE [id number] 16:44:00 Test Item Value Reference Range Interpretation Comments POC-GLUCOSE METER 143 mg/dL 70-[address] [facility] 6720 ([facility]) (test code = [place]ER[place]ZA Baeza [facility] 1538) [address] POCT-GLUCOSE [id number] 13:14:00 Test Item Value Reference Range Interpretation Comments POC-GLUCOSE METER 106 mg/dL 70-[address] [facility] 6720 ([facility]) (test code = ESPER[place] Baeza [facility] 1538) [address] POCT-GLUCOSE [id number] 07:34:00 Test Item Value Reference Range Interpretation Comments POC-GLUCOSE METER 110 mg/dL 70-[address] [facility] 6720 (BEAKER) (test code = [place] 1538) [address] CBC W/PLT COUNT & AUTO [id number] 07:29:00 Test Item Value Reference Range Interpretation Comments WHITE BLOOD CELL COUNT (BEAKER) 13.0 K/ L 3.5-10.5 H (test code = 775) RED BLOOD CELL COUNT (BEAKER) 3.44 M/ L 4.63-6.08 L (test code = 761) HEMOGLOBIN (BEAKER) (test code = 10.8 GM/DL 13.7-17.5 L 410) HEMATOCRIT (BEAKER) (test code = 32.8 % 40.1-51.0 L 411) MEAN CORPUSCULAR VOLUME (BEAKER) 95.3 fL 79.0-92.2 H (test code = 753) MEAN CORPUSCULAR HEMOGLOBIN 31.4 pg 25.7-32.2 (BEAKER) (test code = 751) MEAN CORPUSCULAR HEMOGLOBIN CONC 32.9 GM/DL 32.3-36.5 (BEAKER) (test code = 752) RED CELL DISTRIBUTION WIDTH 13.5 % 11.6-14.4 (BEAKER) (test code = 412) PLATELET COUNT (BEAKER) (test 259 K/CU MM 150-450 code = 756) MEAN PLATELET VOLUME (BEAKER) 10.7 fL 9.4-12.4 (test code = 754) NUCLEATED RED BLOOD CELLS 0 /100 WBC 0-0 (BEAKER) (test code = 413) NEUTROPHILS RELATIVE PERCENT 72 % (BEAKER) (test code = 429) LYMPHOCYTES RELATIVE PERCENT 15 % (BEAKER) (test code = 430) MONOCYTES RELATIVE PERCENT 10 % (BEAKER) (test code = 431) EOSINOPHILS RELATIVE PERCENT 2 % (BEAKER) (test code = 432) BASOPHILS RELATIVE PERCENT 1 % (BEAKER) (test code = 437) NEUTROPHILS ABSOLUTE COUNT 9.38 K/ L 1.78-5.38 H (BEAKER) (test code = 670) LYMPHOCYTES ABSOLUTE COUNT 2.00 K/ L 1.32-3.57 (BEAKER) (test code = 414) MONOCYTES ABSOLUTE COUNT (BEAKER) 1.30 K/ L 0.30-0.82 H (test code = 415) EOSINOPHILS ABSOLUTE COUNT 0.20 K/ L 0.04-0.54 (BEAKER) (test code = 416) BASOPHILS ABSOLUTE COUNT (BEAKER) 0.06 K/ L 0.01-0.08 (test code = 417) IMMATURE GRANULOCYTES-RELATIVE 1 % 0-1 PERCENT (BEAKER) (test code = 2801) BASIC METABOLIC [id number] 07:25:00 Test Item Value Reference Range Interpretation Comments SODIUM (BEAKER) 140 meq/L 136-145 (test code = 381) POTASSIUM (BEAKER) 3.6 meq/L 3.5-5.1 (test code = 379) CHLORIDE (BEAKER) 100 meq/L 98-107 (test code = 382) CO2 (BEAKER) (test 29 meq/L 22-29 code = 355) BLOOD UREA NITROGEN 28 mg/dL 7-21 H (BEAKER) (test code = 354) CREATININE (BEAKER) 0.84 mg/dL 0.57-1.25 (test code = 358) GLUCOSE RANDOM 103 mg/dL 70-105 (BEAKER) (test code = 652) CALCIUM (BEAKER) 9.4 mg/dL 8.4-10.2 (test code = 697) EGFR (BEAKER) (test 93 mL/min/1.73 ESTIMA JAVIER GFR IS code = 1092) sq m NOT ACCURATE CREATININE CLEARANCE IN PREDICTING GLOMERULAR FILTRATION RATE . ESTIMATED GFR I S NOT APPLICABLE FOR DIALYSIS PATIEN TS. POCT-GLUCOSE [id number] 23:01:00 Test Item Value Reference Range Interpretation Comments POC-GLUCOSE METER 140 mg/dL 70-[address] [facility] 6720 ([facility]) (test code = [place] 1538) [address] POCT-GLUCOSE [id number] 16:43:00 Test Item Value Reference Range Interpretation Comments POC-GLUCOSE METER 131 mg/dL 70-[address] [facility] 6720 (BEAKER) (test code = [place] 1538) [address] POCT-GLUCOSE [id number] 12:22:00 Test Item Value Reference Range Interpretation Comments POC-GLUCOSE METER 118 mg/dL 70-[address] [facility] 6720 (BEAKER) (test code = ESPERANZA Baeza [facility] 1538) [address] RAD, CHEST, 1 VIEW, NON [id number] 07:29:00Reason for exam:->s/p acbShould this be performed at the bedside?->YesFINAL REPORT Chest one view AP 06/17/2017 7:29 AM CLINICAL INDICATION: s/p acb C OMPARISON: 06/16/2017 IMPRESSION: The cardiac silhouette is enlarged, but stable. There is mild pulmonary edema. There is bibasilar atelectasis with a trace left pleural effusion. Signed: Florentino Osei MDReport Verified Date/Time: 06/17/2017 07:29:52 Reading Location: [address] Consult Reading Room C METABOLIC [id number] 07:24:00 Test Item Value Reference Range Interpretation Comments SODIUM (BEAKER) 138 meq/L 136-145 (test code = 381) POTASSIUM (BEAKER) 3.8 meq/L 3.5-5.1 (test code = 379) CHLORIDE (BEAKER) 101 meq/L 98-107 (test code = 382) CO2 (BEAKER) (test 28 meq/L 22-29 code = 355) BLOOD UREA NITROGEN 30 mg/dL 7-21 H (BEAKER) (test code = 354) CREATININE (BEAKER) 0.84 mg/dL 0.57-1.25 (test code = 358) GLUCOSE RANDOM 137 mg/dL 70-105 H (BEAKER) (test code = 652) CALCIUM (BEAKER) 9.0 mg/dL 8.4-10.2 (test code = 697) EGFR (BEAKER) (test 93 mL/min/1.73 ESTIMA JAVIER GFR IS code = 1092) sq m NOT ACCURATE CREATININE CLEARANCE IN PREDICTING GLOMERULAR FILTRATION RATE . ESTIMATED GFR I S NOT APPLICABLE FOR DIALYSIS PATIEN TS. CBC W/PLT COUNT & AUTO [id number] 06:34:00 Test Item Value Reference Range Interpretation Comments WHITE BLOOD CELL COUNT (BEAKER) 13.0 K/ L 3.5-10.5 H (test code = 775) RED BLOOD CELL COUNT (BEAKER) 3.14 M/ L 4.63-6.08 L (test code = 761) HEMOGLOBIN (BEAKER) (test code = 9.8 GM/DL 13.7-17.5 L 410) HEMATOCRIT (BEAKER) (test code = 30.3 % 40.1-51.0 L 411) MEAN CORPUSCULAR VOLUME (BEAKER) 96.5 fL 79.0-92.2 H (test code = 753) MEAN CORPUSCULAR HEMOGLOBIN 31.2 pg 25.7-32.2 (BEAKER) (test code = 751) MEAN CORPUSCULAR HEMOGLOBIN CONC 32.3 GM/DL 32.3-36.5 (BEAKER) (test code = 752) RED CELL DISTRIBUTION WIDTH 13.5 % 11.6-14.4 (BEAKER) (test code = 412) PLATELET COUNT (BEAKER) (test 183 K/CU MM 150-450 code = 756) MEAN PLATELET VOLUME (BEAKER) 10.6 fL 9.4-12.4 (test code = 754) NUCLEATED RED BLOOD CELLS 0 /100 WBC 0-0 (BEAKER) (test code = 413) NEUTROPHILS RELATIVE PERCENT 78 % (BEAKER) (test code = 429) LYMPHOCYTES RELATIVE PERCENT 12 % (BEAKER) (test code = 430) MONOCYTES RELATIVE PERCENT 9 % (BEAKER) (test code = 431) EOSINOPHILS RELATIVE PERCENT 1 % (BEAKER) (test code = 432) BASOPHILS RELATIVE PERCENT 0 % (BEAKER) (test code = 437) NEUTROPHILS ABSOLUTE COUNT 10.08 K/ L 1.78-5.38 H (BEAKER) (test code = 670) LYMPHOCYTES ABSOLUTE COUNT 1.51 K/ L 1.32-3.57 (BEAKER) (test code = 414) MONOCYTES ABSOLUTE COUNT (BEAKER) 1.12 K/ L 0.30-0.82 H (test code = 415) EOSINOPHILS ABSOLUTE COUNT 0.16 K/ L 0.04-0.54 (BEAKER) (test code = 416) BASOPHILS ABSOLUTE COUNT (BEAKER) 0.04 K/ L 0.01-0.08 (test code = 417) IMMATURE GRANULOCYTES-RELATIVE 1 % 0-1 PERCENT (BEAKER) (test code = 2801) POCT-GLUCOSE [id number] 20:49:00 Test Item Value Reference Range Interpretation Comments POC-GLUCOSE METER 151 mg/dL 70-[address] [facility] 6720 (BEAKER) (test code = [place] 1538) [id number] POCT-GLUCOSE [id number] 17:25:00 Test Item Value Reference Range Interpretation Comments POC-GLUCOSE METER 106 mg/dL 70-110 TESTED AT [place] [address] (BEAKER) (test code = [place] 1538) [address] POCT-GLUCOSE [id number] 08:16:00 Test Item Value Reference Range Interpretation Comments POC-GLUCOSE METER 223 mg/dL 70-110 H TESTED AT [place] [address] (BEAKER) (test code = [place]ae[place] 1538) [address] CBC W/PLT COUNT & AUTO [id number] 04:02:00 Test Item Value Reference Range Interpretation Comments WHITE BLOOD CELL COUNT (BEAKER) 15.3 K/ L 3.5-10.5 H (test code = 775) RED BLOOD CELL COUNT (BEAKER) 2.96 M/ L 4.63-6.08 L (test code = 761) HEMOGLOBIN (BEAKER) (test code = 9.2 GM/DL 13.7-17.5 L 410) HEMATOCRIT (BEAKER) (test code = 28.1 % 40.1-51.0 L 411) MEAN CORPUSCULAR VOLUME (BEAKER) 94.9 fL 79.0-92.2 H (test code = 753) MEAN CORPUSCULAR HEMOGLOBIN 31.1 pg 25.7-32.2 (BEAKER) (test code = 751) MEAN CORPUSCULAR HEMOGLOBIN CONC 32.7 GM/DL 32.3-36.5 (BEAKER) (test code = 752) RED CELL DISTRIBUTION WIDTH 13.5 % 11.6-14.4 (BEAKER) (test code = 412) PLATELET COUNT (BEAKER) (test 144 K/CU MM 150-450 L code = 756) MEAN PLATELET VOLUME (BEAKER) 10.4 fL 9.4-12.4 (test code = 754) NUCLEATED RED BLOOD CELLS 0 /100 WBC 0-0 (BEAKER) (test code = 413) NEUTROPHILS RELATIVE PERCENT 81 % (BEAKER) (test code = 429) LYMPHOCYTES RELATIVE PERCENT 8 % (BEAKER) (test code = 430) MONOCYTES RELATIVE PERCENT 9 % (BEAKER) (test code = 431) EOSINOPHILS RELATIVE PERCENT 1 % (BEAKER) (test code = 432) BASOPHILS RELATIVE PERCENT 0 % (BEAKER) (test code = 437) NEUTROPHILS ABSOLUTE COUNT 12.38 K/ L 1.78-5.38 H (BEAKER) (test code = 670) LYMPHOCYTES ABSOLUTE COUNT 1.23 K/ L 1.32-3.57 L (BEAKER) (test code = 414) MONOCYTES ABSOLUTE COUNT (BEAKER) 1.40 K/ L 0.30-0.82 H (test code = 415) EOSINOPHILS ABSOLUTE COUNT 0.09 K/ L 0.04-0.54 (BEAKER) (test code = 416) BASOPHILS ABSOLUTE COUNT (BEAKER) 0.04 K/ L 0.01-0.08 (test code = 417) IMMATURE GRANULOCYTES-RELATIVE 1 % 0-1 PERCENT (BEAKER) (test code = 2801) CALCIUM, [id number] 04:01:00 Test Item Value Reference Range Interpretation Comments CALCIUM IONIZED (BEAKER) (test 1.13 mmol/L 1.12-1.27 code = 698) PH, BLOOD (BEAKER) (test code = 7.39 1810) [id number] 03:59:00 Test Item Value Reference Range Interpretation Comments PHOSPHORUS (BEAKER) (test code = 2.2 mg/dL 2.3-4.7 L 604) [id number] 03:59:00 Test Item Value Reference Range Interpretation Comments MAGNESIUM (BEAKER) (test code = 2.3 mg/dL 1.6-2.6 627) BASIC METABOLIC [id number] 03:59:00 Test Item Value Reference Range Interpretation Comments SODIUM (BEAKER) 137 meq/L 136-145 (test code = 381) POTASSIUM (BEAKER) 4.3 meq/L 3.5-5.1 (test code = 379) CHLORIDE (BEAKER) 104 meq/L 98-107 (test code = 382) CO2 (BEAKER) (test 26 meq/L 22-29 code = 355) BLOOD UREA NITROGEN 32 mg/dL 7-21 H (BEAKER) (test code = 354) CREATININE (BEAKER) 0.84 mg/dL 0.57-1.25 (test code = 358) GLUCOSE RANDOM 140 mg/dL 70-105 H ([facility]) (test code = 652) CALCIUM (BEAKER) 8.8 mg/dL 8.4-10.2 (test code = 697) EGFR ([facility]) (test 93 mL/min/1.73 ESTIMA JAVIER GFR IS code = 1092) sq m NOT ACCURATE CREATININE CLEARANCE IN PREDICTING GLOMERULAR FILTRATION RATE . ESTIMATED GFR I S NOT APPLICABLE FOR DIALYSIS PATIEN TS. OXYGEN SATURATION, [id number] 03:58:00 Test Item Value Reference Range Interpretation Comments O2 SATURATION (MEASURED) ([facility]) 62.6 % (test code = 1455) RAD, CHEST, 1 VIEW, NON [id number] 03:52:00Reason for exam:->Post OpFINAL REPORT CLINICAL INDICATION: Postop Comparison: 06/15/2017 The cardiomediastinal contours are stable. Bilateral parenchymal and left pleural opacities are unchanged. There is no pneumothorax. A right IJ CVC remains in place. Signed: Antony Brenner MDReport Verified Date/Time: 06/16/2017 03:52:02 Reading Location: [address] Reading Room POCT-GLUCOSE METER 2017-06-15 22:43:00 Test Item Value Reference Range Interpretation Comments POC-GLUCOSE METER 128 mg/dL 70-110 H TESTED AT [place] [address] ([facility]) (test code = ESPERANZA Baeza [facility] 1538) [id number] POCT-GLUCOSE [id number] 22:08:00 Test Item Value Reference Range Interpretation Comments POC-GLUCOSE METER 114 mg/dL 70-110 H TESTED AT [place] [address] ([facility]) (test code = ESPERAN[place] Baeza [facility] 1538) [address] POCT-GLUCOSE [id number] 22:08:00 Test Item Value Reference Range Interpretation Comments POC-GLUCOSE METER 147 mg/dL 70-[address] [facility] 6720 ([facility]) (test code = ESPER[place]ZA Baeza [facility] 1538) [address] POCT-GLUCOSE [id number] 22:08:00 Test Item Value Reference Range Interpretation Comments POC-GLUCOSE METER 162 mg/dL 70-110 H TESTED AT [place] [address] ([facility]) (test code = ESPERANZA Baeza [facility] 1538) [address] POCT-GLUCOSE [id number] 18:15:00 Test Item Value Reference Range Interpretation Comments POC-GLUCOSE METER 201 mg/dL 70-110 H TESTED AT [place] [address] ([facility]) (test code = ESPERANZA Baeza [facility] 1538) [address] POCT-GLUCOSE [id number] 12:52:00 Test Item Value Reference Range Interpretation Comments POC-GLUCOSE METER 150 mg/dL 70-110 H TESTED AT [place] [address] ([facility]) (test code = ESPERANZA Baeza [facility] 1538) [address] POCT-GLUCOSE [id number] 09:00:00 Test Item Value Reference Range Interpretation Comments POC-GLUCOSE METER 155 mg/dL 70-110 H TESTED AT [place] [address] ([facility]) (test code = ESPERANZA Baeza [facility] 1538) [address] RAD, CHEST, 1 VIEW, NON [id number] 07:19:00Reason for exam:->Post OpFINAL REPORT Chest one view AP 06/15/2017 7:19 AM CLINICAL INDICATION: Post Op COMPARISON: 06/14/2017 IMPRESSION: No pneumothorax is evident status post left thoracostomy tube removal. Remaining support hardware is unchanged in position. The cardiac silhouette is enlarged, but stable. The central pulmonary vasculature is not engorged. There are streaky foci of atelectasis bilaterally. Superimposed pneumonia should be excluded clinically. There is a trace left pleural effusion. Signed: Florentino Oseieport Verified Date/Time: 06/15/2017 07:19:36 Reading Location: [facility] Reading Room [id number] 05:01:00 Test Item Value Reference Range Interpretation Comments PHOSPHORUS (BEAKER) (test code = 2.8 mg/dL 2.3-4.7 604) [id number] 05:01:00 Test Item Value Reference Range Interpretation Comments MAGNESIUM (BEAKER) (test code = 2.1 mg/dL 1.6-2.6 627) BASIC METABOLIC [id number] 05:01:00 Test Item Value Reference Range Interpretation Comments SODIUM (BEAKER) 137 meq/L 136-145 (test code = 381) POTASSIUM (BEAKER) 4.4 meq/L 3.5-5.1 (test code = 379) CHLORIDE (BEAKER) 107 meq/L 98-107 (test code = 382) CO2 (BEAKER) (test 23 meq/L 22-29 code = 355) BLOOD UREA NITROGEN 30 mg/dL 7-21 H (BEAKER) (test code = 354) CREATININE (BEAKER) 0.95 mg/dL 0.57-1.25 (test code = 358) GLUCOSE RANDOM 148 mg/dL 70-105 H (BEAKER) (test code = 652) CALCIUM (BEAKER) 8.1 mg/dL 8.4-10.2 L (test code = 697) EGFR (BEAKER) (test 80 mL/min/1.73 ESTIMA JAVIER GFR IS code = 1092) sq m NOT ACCURATE CREATININE CLEARANCE IN PREDICTING GLOMERULAR FILTRATION RATE . ESTIMATED GFR I S NOT APPLICABLE FOR DIALYSIS PATIEN TS. CALCIUM, [id number] 04:58:00 Test Item Value Reference Range Interpretation Comments CALCIUM IONIZED (BEAKER) (test 1.15 mmol/L 1.12-1.27 code = 698) PH, BLOOD (BEAKER) (test code = 7.34 1810) OXYGEN SATURATION, [id number] 04:57:00 Test Item Value Reference Range Interpretation Comments O2 SATURATION (MEASURED) (BEAKER) 61.5 % (test code = 1455) CBC W/PLT COUNT & AUTO [id number] 04:51:00 Test Item Value Reference Range Interpretation Comments WHITE BLOOD CELL COUNT (BEAKER) 16.3 K/ L 3.5-10.5 H (test code = 775) RED BLOOD CELL COUNT (BEAKER) 3.04 M/ L 4.63-6.08 L (test code = 761) HEMOGLOBIN (BEAKER) (test code = 9.6 GM/DL 13.7-17.5 L 410) HEMATOCRIT (BEAKER) (test code = 29.8 % 40.1-51.0 L 411) MEAN CORPUSCULAR VOLUME (BEAKER) 98.0 fL 79.0-92.2 H (test code = 753) MEAN CORPUSCULAR HEMOGLOBIN 31.6 pg 25.7-32.2 (BEAKER) (test code = 751) MEAN CORPUSCULAR HEMOGLOBIN CONC 32.2 GM/DL 32.3-36.5 L (BEAKER) (test code = 752) RED CELL DISTRIBUTION WIDTH 13.8 % 11.6-14.4 (BEAKER) (test code = 412) PLATELET COUNT (BEAKER) (test 127 K/CU MM 150-450 L code = 756) MEAN PLATELET VOLUME (BEAKER) 10.4 fL 9.4-12.4 (test code = 754) NUCLEATED RED BLOOD CELLS 0 /100 WBC 0-0 (BEAKER) (test code = 413) NEUTROPHILS RELATIVE PERCENT 83 % (BEAKER) (test code = 429) LYMPHOCYTES RELATIVE PERCENT 8 % (BEAKER) (test code = 430) MONOCYTES RELATIVE PERCENT 8 % (BEAKER) (test code = 431) EOSINOPHILS RELATIVE PERCENT 0 % (BEAKER) (test code = 432) BASOPHILS RELATIVE PERCENT 0 % (BEAKER) (test code = 437) NEUTROPHILS ABSOLUTE COUNT 13.55 K/ L 1.78-5.38 H (BEAKER) (test code = 670) LYMPHOCYTES ABSOLUTE COUNT 1.29 K/ L 1.32-3.57 L (BEAKER) (test code = 414) MONOCYTES ABSOLUTE COUNT (BEAKER) 1.35 K/ L 0.30-0.82 H (test code = 415) EOSINOPHILS ABSOLUTE COUNT 0.01 K/ L 0.04-0.54 L (BEAKER) (test code = 416) BASOPHILS ABSOLUTE COUNT (BEAKER) 0.03 K/ L 0.01-0.08 (test code = 417) IMMATURE GRANULOCYTES-RELATIVE 1 % 0-1 PERCENT (BEAKER) (test code = 2807) POCT-GLUCOSE [id number] 21:37:00 Test Item Value Reference Range Interpretation Comments POC-GLUCOSE METER 187 mg/dL 70-[address] [facility] 6720 (BEAKER) (test code = [place] 1538) [id number] POCT-GLUCOSE [id number] 17:53:00 Test Item Value Reference Range Interpretation Comments POC-GLUCOSE METER 217 mg/dL 70-[address] [facility] 6720 (BEAKER) (test code = [place] 1538) [address] [id number] 16:31:00 Test Item Value Reference Range Interpretation Comments MAGNESIUM (BEAKER) (test code = 2.3 mg/dL 1.6-2.6 627) BASIC METABOLIC [id number] 14:00:00 Test Item Value Reference Range Interpretation Comments SODIUM (BEAKER) 140 meq/L 136-145 (test code = 381) POTASSIUM (BEAKER) 4.7 meq/L 3.5-5.1 (test code = 379) CHLORIDE (BEAKER) 109 meq/L 98-107 H (test code = 382) CO2 (BEAKER) (test 24 meq/L 22-29 code = 355) BLOOD UREA NITROGEN 27 mg/dL 7-21 H (BEAKER) (test code = 354) CREATININE (BEAKER) 1.11 mg/dL 0.57-1.25 (test code = 358) GLUCOSE RANDOM 133 mg/dL 70-105 H (BEAKER) (test code = 652) CALCIUM (BEAKER) 8.6 mg/dL 8.4-10.2 (test code = 697) EGFR (BEAKER) (test 67 mL/min/1.73 ESTIMA JAVIER GFR IS code = 1092) sq m NOT ACCURATE CREATININE CLEARANCE IN PREDICTING GLOMERULAR FILTRATION RATE . ESTIMATED GFR I S NOT APPLICABLE FOR DIALYSIS PATIEN TS. BLOOD GAS, [id number] 13:46:00 Test Item Value Reference Range Interpretation Comments PH ARTERIAL (BEAKER) (test code = 7.37 7.35-7.45 383) PCO2 ARTERIAL (BEAKER) (test code 44 mmHg 35-45 = 384) PO2 ARTERIAL (BEAKER) (test code 80 mmHg 80-90 = 385) O2 SATURATION ARTERIAL (BEAKER) 95.5 % 96.0-97.0 L (test code = 386) HCO3 ARTERIAL (BEAKER) (test code 25 mmol/L 21-29 = 388) BASE EXCESS ARTERIAL (BEAKER) -0.6 mmol/L -2.0-3.0 (test code = 387) PATIENT TEMPERATURE (BEAKER) 36.9 C (test code = 1818) FIO2 (BEAKER) (test code = 1819) 7L LACTIC ACID, ARTERIAL, WHOLE [id number] 12:33:00 Test Item Value Reference Range Interpretation Comments LACTATE BLOOD ARTERIAL (2) 1.5 mmol/L 0.5-2.2 (AKER) (test code = 2874) Effective 11/26/2015: Units/Reference Range ChangeNew: 0.5-2.2 mmol/L Previous: 5- 20 mg/dLPOCT-GLUCOSE [id number] 08:08:00 Test Item Value Reference Range Interpretation Comments POC-GLUCOSE METER 120 mg/dL 70-[address] [facility] 67 ([facility]) (test code = [facility] 1538) [id number] POCT-GLUCOSE [id number] 05:52:00 Test Item Value Reference Range Interpretation Comments POC-GLUCOSE METER 113 mg/dL 70-110 H TESTED AT [place] [address] ([facility]) (test code = [facility] 1538) [address] CALCIUM, [id number] 05:44:00 Test Item Value Reference Range Interpretation Comments CALCIUM IONIZED ([facility]) (test 1.11 mmol/L 1.12-1.27 L code = 698) PH, BLOOD ([facility]) (test code = 7.37 1810) LACTIC ACID, ARTERIAL, WHOLE [id number] 05:21:00 Test Item Value Reference Range Interpretation Comments LACTATE BLOOD ARTERIAL (2) 2.0 mmol/L 0.5-2.2 ([facility]) (test code = 2874) Effective 11/26/2015: Units/Reference Range ChangeNew: 0.5-2.2 mmol/L Previous: 5- 20 mg/dLOXYGEN SATURATION, [id number] 05:07:00 Test Item Value Reference Range Interpretation Comments O2 SATURATION (MEASURED) (AKER) 66.6 % (test code = 1455) RAD, CHEST, 1 VIEW, NON [id number] 05:00:00Reason for exam:->Post OpFINAL REPORT EXAMINATION: AP PORTABLE CHEST RADIOGRAPH CLINICAL INDICATION: Chest tube IMPRESSION: Compared with 06/13/2017. The endotracheal and nasogastric tubes have been removed. A right jugular central line and left- sided chest tube are again noted, grossly stable in position. The heart is enlarged as before. Overall aeration of the lungs has improved. However, streaky and patchy opacities persist in both lungs with a predominantly central and basilar distribution. Althougha component of atelectasis is suspected, mild superimposed edema, sequela from aspiration or a pneumonia should also be considered. No evidence of new lung consolidation or pneumothorax. Small stable superimposed pleural effusions are also again suspected. Signed: Nikita Russ MDReport Verified Date/Time: 06/14/2017 05:00:14 Reading Location: [address] Transitional Reading Room [id number] 04:40:00 Test Item Value Reference Range Interpretation Comments PHOSPHORUS (BEAKER) (test code = 3.6 mg/dL 2.3-4.7 604) [id number] 04:40:00 Test Item Value Reference Range Interpretation Comments MAGNESIUM (BEAKER) (test code = 2.3 mg/dL 1.6-2.6 627) BASIC METABOLIC [id number] 04:40:00 Test Item Value Reference Range Interpretation Comments SODIUM (BEAKER) 142 meq/L 136-145 (test code = 381) POTASSIUM (BEAKER) 4.9 meq/L 3.5-5.1 (test code = 379) CHLORIDE (BEAKER) 110 meq/L 98-107 H (test code = 382) CO2 (BEAKER) (test 24 meq/L 22-29 code = 355) BLOOD UREA NITROGEN 22 mg/dL 7-21 H (BEAKER) (test code = 354) CREATININE (BEAKER) 0.96 mg/dL 0.57-1.25 (test code = 358) GLUCOSE RANDOM 122 mg/dL 70-105 H (BEAKER) (test code = 652) CALCIUM (BEAKER) 8.3 mg/dL 8.4-10.2 L (test code = 697) EGFR (BEAKER) (test 79 mL/min/1.73 ESTIMA JAVIER GFR IS code = 1092) sq m NOT ACCURATE CREATININE CLEARANCE IN PREDICTING GLOMERULAR FILTRATION RATE . ESTIMATED GFR I S NOT APPLICABLE FOR DIALYSIS PATIEN TS. CBC W/PLT COUNT & AUTO [id number] 04:24:00 Test Item Value Reference Range Interpretation Comments WHITE BLOOD CELL COUNT (BEAKER) 15.4 K/ L 3.5-10.5 H (test code = 775) RED BLOOD CELL COUNT (BEAKER) 3.08 M/ L 4.63-6.08 L (test code = 761) HEMOGLOBIN (BEAKER) (test code = 9.7 GM/DL 13.7-17.5 L 410) HEMATOCRIT (BEAKER) (test code = 30.0 % 40.1-51.0 L 411) MEAN CORPUSCULAR VOLUME (BEAKER) 97.4 fL 79.0-92.2 H (test code = 753) MEAN CORPUSCULAR HEMOGLOBIN 31.5 pg 25.7-32.2 (BEAKER) (test code = 751) MEAN CORPUSCULAR HEMOGLOBIN CONC 32.3 GM/DL 32.3-36.5 (BEAKER) (test code = 752) RED CELL DISTRIBUTION WIDTH 13.8 % 11.6-14.4 (BEAKER) (test code = 412) PLATELET COUNT (BEAKER) (test 162 K/CU MM 150-450 code = 756) MEAN PLATELET VOLUME (BEAKER) 10.3 fL 9.4-12.4 (test code = 754) NUCLEATED RED BLOOD CELLS 0 /100 WBC 0-0 (BEAKER) (test code = 413) NEUTROPHILS RELATIVE PERCENT 87 % (BEAKER) (test code = 429) LYMPHOCYTES RELATIVE PERCENT 4 % (BEAKER) (test code = 430) MONOCYTES RELATIVE PERCENT 9 % (BEAKER) (test code = 431) EOSINOPHILS RELATIVE PERCENT 0 % (BEAKER) (test code = 432) BASOPHILS RELATIVE PERCENT 0 % (BEAKER) (test code = 437) NEUTROPHILS ABSOLUTE COUNT 13.36 K/ L 1.78-5.38 H (BEAKER) (test code = 670) LYMPHOCYTES ABSOLUTE COUNT 0.65 K/ L 1.32-3.57 L (BEAKER) (test code = 414) MONOCYTES ABSOLUTE COUNT (BEAKER) 1.32 K/ L 0.30-0.82 H (test code = 415) EOSINOPHILS ABSOLUTE COUNT 0.00 K/ L 0.04-0.54 L (BEAKER) (test code = 416) BASOPHILS ABSOLUTE COUNT (BEAKER) 0.03 K/ L 0.01-0.08 (test code = 417) IMMATURE GRANULOCYTES-RELATIVE 0 % 0-1 PERCENT (BEAKER) (test code = 6011) POCT-GLUCOSE [id number] 04:22:00 Test Item Value Reference Range Interpretation Comments POC-GLUCOSE METER 129 mg/dL 70-110 H TESTED AT [place] [address] ([facility]) (test code = ESPERANZA Baeza [facility] 1538) [address] POCT-GLUCOSE [id number] 02:58:00 Test Item Value Reference Range Interpretation Comments POC-GLUCOSE METER 147 mg/dL 70-110 H TESTED AT [place] [address] ([facility]) (test code = ESPERANZA Baeza [facility] 1538) [address] POCT-GLUCOSE [id number] 01:51:00 Test Item Value Reference Range Interpretation Comments POC-GLUCOSE METER 126 mg/dL 70-110 H TESTED AT [place] [address] ([facility]) (test code = [facility] Felisha [facility] 1538) [address] POCT-GLUCOSE [id number] 01:51:00 Test Item Value Reference Range Interpretation Comments POC-GLUCOSE METER 155 mg/dL 70-110 H TESTED AT [place] [address] ([facility]) (test code = LLUV[place]O Felisha [facility] 1538) [address] POCT-GLUCOSE [id number] 00:58:00 Test Item Value Reference Range Interpretation Comments POC-GLUCOSE METER 129 mg/dL 70-110 H TESTED AT [place] [address] ([facility]) (test code = [facility] Felisha [facility] 1538) [address] [id number] 00:50:00 Test Item Value Reference Range Interpretation Comments POTASSIUM (AKER) (test code = 4.9 meq/L 3.5-5.1 379) Check Serum Magnesium level 2 hours after IV magnesium replacement.Check Serum Potassium level 2 hours after oral potassium replacement completed or 30 min after intravenous potassium replacement.[id number] 00:50:00 Test Item Value Reference Range Interpretation Comments MAGNESIUM (BEAKER) (test code = 2.1 mg/dL 1.6-2.6 627) Check Serum Magnesium level 2 hours after IV magnesium replacement.Check Serum Potassium level 2 hours after oral potassium replacement completed or 30 min after intravenous potassium replacement.POCT-GLUCOSE [id number] 00:26:00 Test Item Value Reference Range Interpretation Comments POC-GLUCOSE METER 142 mg/dL 70-110 H TESTED AT [place] [address] ([facility]) (test code = [facility] 1538) [address] LACTIC ACID, ARTERIAL, WHOLE [id number] 23:37:00 Test Item Value Reference Range Interpretation Comments LACTATE BLOOD ARTERIAL (2) 4.3 mmol/L 0.5-2.2 H (BEAKER) (test code = 2874) Effective 11/26/2015: Units/Reference Range ChangeNew: 0.5-2.2 mmol/L Previous: 5- 20 mg/dLBLOOD GAS, [id number] 23:24:00 Test Item Value Reference Range Interpretation Comments PH ARTERIAL (BEAKER) (test code = 7.34 7.35-7.45 L 383) PCO2 ARTERIAL (BEAKER) (test code 42 mmHg 35-45 = 384) PO2 ARTERIAL (BEAKER) (test code 53 mmHg 80-90 L = 385) O2 SATURATION ARTERIAL (BEAKER) 85.1 % 96.0-97.0 L (test code = 386) HCO3 ARTERIAL (BEAKER) (test code 22 mmol/L 21-29 = 388) BASE EXCESS ARTERIAL (BEAKER) -3.3 mmol/L -2.0-3.0 L (test code = 387) PATIENT TEMPERATURE (BEAKER) 37.2 C (test code = 1818) FIO2 (BEAKER) (test code = 1819) 44.0 % POCT-GLUCOSE [id number] 23:19:00 Test Item Value Reference Range Interpretation Comments POC-GLUCOSE METER 166 mg/dL 70-[address] [facility] 6720 (BEAKER) (test code = [facility] 1538) [address] BLOOD GAS, [id number] 21:54:00 Test Item Value Reference Range Interpretation Comments PH ARTERIAL (BEAKER) (test code = 7.32 7.35-7.45 L 383) PCO2 ARTERIAL (BEAKER) (test code 40 mmHg 35-45 = 384) PO2 ARTERIAL (BEAKER) (test code 75 mmHg 80-90 L = 385) O2 SATURATION ARTERIAL (BEAKER) 93.5 % 96.0-97.0 L (test code = 386) HCO3 ARTERIAL (BEAKER) (test code 20 mmol/L 21-29 L = 388) BASE EXCESS ARTERIAL (BEAKER) -5.1 mmol/L -2.0-3.0 L (test code = 387) PATIENT TEMPERATURE (BEAKER) 37.6 C (test code = 1818) FIO2 (BEAKER) (test code = 1819) 40.0 % POCT-GLUCOSE [id number] 21:25:00 Test Item Value Reference Range Interpretation Comments POC-GLUCOSE METER 171 mg/dL 70-[address] [facility] 6720 (BEAKER) (test code = [place] 1538) [address] BLOOD GAS, [id number] 20:41:00 Test Item Value Reference Range Interpretation Comments PH ARTERIAL (BEAKER) (test code = 7.29 7.35-7.45 L 383) PCO2 ARTERIAL (BEAKER) (test code 41 mmHg 35-45 = 384) PO2 ARTERIAL (BEAKER) (test code 73 mmHg 80-90 L = 385) O2 SATURATION ARTERIAL (BEAKER) 93.2 % 96.0-97.0 L (test code = 386) HCO3 ARTERIAL (BEAKER) (test code 19 mmol/L 21-29 L = 388) BASE EXCESS ARTERIAL (BEAKER) -6.9 mmol/L -2.0-3.0 L (test code = 387) PATIENT TEMPERATURE (BEAKER) 37.1 C (test code = 1818) FIO2 (BEAKER) (test code = 1819) 40.0 % BASIC METABOLIC [id number] 19:38:00 Test Item Value Reference Range Interpretation Comments SODIUM (BEAKER) 141 meq/L 136-145 (test code = 381) POTASSIUM (BEAKER) 5.0 meq/L 3.5-5.1 (test code = 379) CHLORIDE (BEAKER) 110 meq/L 98-107 H (test code = 382) CO2 (BEAKER) (test 18 meq/L 22-29 L code = 355) BLOOD UREA NITROGEN 17 mg/dL 7-21 (BEAKER) (test code = 354) CREATININE (BEAKER) 0.97 mg/dL 0.57-1.25 (test code = 358) GLUCOSE RANDOM 189 mg/dL 70-105 H (BEAKER) (test code = 652) CALCIUM (BEAKER) 8.3 mg/dL 8.4-10.2 L (test code = 697) EGFR (BEAKER) (test 78 mL/min/1.73 ESTIMA JAVIER GFR IS code = 1092) sq m NOT ACCURATE CREATININE CLEARANCE IN PREDICTING GLOMERULAR FILTRATION RATE . ESTIMATED GFR I S NOT APPLICABLE FOR DIALYSIS PATIEN TS. LACTIC ACID, ARTERIAL, WHOLE [id number] 19:33:00 Test Item Value Reference Range Interpretation Comments LACTATE BLOOD ARTERIAL (2) 6.9 mmol/L 0.5-2.2 H (BEAKER) (test code = 2874) Effective 11/26/2015: Units/Reference Range ChangeNew: 0.5-2.2 mmol/L Previous: 5- 20 mg/dLCBC W/PLT COUNT & AUTO [id number] 19:28:00 Test Item Value Reference Range Interpretation Comments WHITE BLOOD CELL COUNT (BEAKER) 25.0 K/ L 3.5-10.5 H (test code = 775) RED BLOOD CELL COUNT (BEAKER) 3.67 M/ L 4.63-6.08 L (test code = 761) HEMOGLOBIN (BEAKER) (test code = 11.6 GM/DL 13.7-17.5 L 410) HEMATOCRIT (BEAKER) (test code = 35.9 % 40.1-51.0 L 411) MEAN CORPUSCULAR VOLUME (BEAKER) 97.8 fL 79.0-92.2 H (test code = 753) MEAN CORPUSCULAR HEMOGLOBIN 31.6 pg 25.7-32.2 (BEAKER) (test code = 751) MEAN CORPUSCULAR HEMOGLOBIN CONC 32.3 GM/DL 32.3-36.5 (BEAKER) (test code = 752) RED CELL DISTRIBUTION WIDTH 13.5 % 11.6-14.4 (BEAKER) (test code = 412) PLATELET COUNT (BEAKER) (test 183 K/CU MM 150-450 code = 756) MEAN PLATELET VOLUME (BEAKER) 10.2 fL 9.4-12.4 (test code = 754) NUCLEATED RED BLOOD CELLS 0 /100 WBC 0-0 (BEAKER) (test code = 413) NEUTROPHILS RELATIVE PERCENT 87 % (BEAKER) (test code = 429) LYMPHOCYTES RELATIVE PERCENT 4 % (BEAKER) (test code = 430) MONOCYTES RELATIVE PERCENT 9 % (BEAKER) (test code = 431) EOSINOPHILS RELATIVE PERCENT 0 % (BEAKER) (test code = 432) BASOPHILS RELATIVE PERCENT 0 % (BEAKER) (test code = 437) NEUTROPHILS ABSOLUTE COUNT 21.72 K/ L 1.78-5.38 H (BEAKER) (test code = 670) LYMPHOCYTES ABSOLUTE COUNT 0.95 K/ L 1.32-3.57 L (BEAKER) (test code = 414) MONOCYTES ABSOLUTE COUNT (BEAKER) 2.13 K/ L 0.30-0.82 H (test code = 415) EOSINOPHILS ABSOLUTE COUNT 0.00 K/ L 0.04-0.54 L (BEAKER) (test code = 416) BASOPHILS ABSOLUTE COUNT (BEAKER) 0.05 K/ L 0.01-0.08 (test code = 417) IMMATURE GRANULOCYTES-RELATIVE 1 % 0-1 PERCENT (BEAKER) (test code = 2801) BLOOD GAS, [id number] 19:03:00 Test Item Value Reference Range Interpretation Comments PH VENOUS (BEAKER) (test code = 7.21 7.32-7.42 L 701) PCO2 VENOUS (BEAKER) (test code = 53 mmHg 41-51 H 755) PO2 VENOUS (BEAKER) (test code = 46 mmHg 25-40 H 702) O2 SATURATION VENOUS (BEAKER) 71.5 % 40.0-70.0 H (test code = 703) HCO3 VENOUS (BEAKER) (test code = 21 mmol/L 21-29 705) BASE EXCESS VENOUS (BEAKER) (test -7.5 mmol/L -2.0-3.0 L code = 704) PATIENT TEMPERATURE (BEAKER) 37.1 C (test code = 1818) FIO2 (BEAKER) (test code = 1819) 40.0 % BLOOD GAS, [id number] 19:03:00 Test Item Value Reference Range Interpretation Comments PH ARTERIAL (BEAKER) (test code = 7.26 7.35-7.45 L 383) PCO2 ARTERIAL (BEAKER) (test code 43 mmHg 35-45 = 384) PO2 ARTERIAL (BEAKER) (test code 86 mmHg 80-90 = 385) O2 SATURATION ARTERIAL (BEAKER) 95.0 % 96.0-97.0 L (test code = 386) HCO3 ARTERIAL (BEAKER) (test code 19 mmol/L 21-29 L = 388) BASE EXCESS ARTERIAL (BEAKER) -7.9 mmol/L -2.0-3.0 L (test code = 387) PATIENT TEMPERATURE (BEAKER) 37.1 C (test code = 1818) FIO2 ([facility]) (test code = 1819) 40.0 % POCT-GLUCOSE [id number] 19:01:00 Test Item Value Reference Range Interpretation Comments POC-GLUCOSE METER 201 mg/dL 70-110 H TESTED AT [place] [address] ([facility]) (test code = [facility] 1538) [address] POCT-GLUCOSE [id number] 19:01:00 Test Item Value Reference Range Interpretation Comments POC-GLUCOSE METER 193 mg/dL 70-110 H TESTED AT [place] [address] ([facility]) (test code = [facility] 1538) [address] POCT-GLUCOSE [id number] 19:01:00 Test Item Value Reference Range Interpretation Comments POC-GLUCOSE METER 191 mg/dL 70-110 H TESTED AT [place] [address] ([facility]) (test code = [facility] 1538) [address] POCT-GLUCOSE [id number] 19:01:00 Test Item Value Reference Range Interpretation Comments POC-GLUCOSE METER 195 mg/dL 70-110 H TESTED AT [place] [address] ([facility]) (test code = [facility] 1538) [address] CBC W/PLT COUNT & AUTO [id number] 15:44:00 Test Item Value Reference Range Interpretation Comments WHITE BLOOD CELL COUNT (BEAKER) 25.6 K/ L 3.5-10.5 H (test code = 775) RED BLOOD CELL COUNT (AKER) 3.96 M/ L 4.63-6.08 L (test code = 761) HEMOGLOBIN (BEAKER) (test code = 12.4 GM/DL 13.7-17.5 L 410) HEMATOCRIT (BEAKER) (test code = 38.2 % 40.1-51.0 L 411) MEAN CORPUSCULAR VOLUME (BEAKER) 96.5 fL 79.0-92.2 H (test code = 753) MEAN CORPUSCULAR HEMOGLOBIN 31.3 pg 25.7-32.2 (BEAKER) (test code = 751) MEAN CORPUSCULAR HEMOGLOBIN CONC 32.5 GM/DL 32.3-36.5 (BEAKER) (test code = 752) RED CELL DISTRIBUTION WIDTH 13.5 % 11.6-14.4 (BEAKER) (test code = 412) PLATELET COUNT (BEAKER) (test 175 K/CU MM 150-450 code = 756) MEAN PLATELET VOLUME (BEAKER) 10.8 fL 9.4-12.4 (test code = 754) NUCLEATED RED BLOOD CELLS 0 /100 WBC 0-0 (BEAKER) (test code = 413) NEUTROPHILS RELATIVE PERCENT 83 % (BEAKER) (test code = 429) LYMPHOCYTES RELATIVE PERCENT 10 % (BEAKER) (test code = 430) MONOCYTES RELATIVE PERCENT 6 % (BEAKER) (test code = 431) EOSINOPHILS RELATIVE PERCENT 0 % (BEAKER) (test code = 432) BASOPHILS RELATIVE PERCENT 0 % (BEAKER) (test code = 437) NEUTROPHILS ABSOLUTE COUNT 21.17 K/ L 1.78-5.38 H (BEAKER) (test code = 670) LYMPHOCYTES ABSOLUTE COUNT 2.51 K/ L 1.32-3.57 (BEAKER) (test code = 414) MONOCYTES ABSOLUTE COUNT (BEAKER) 1.47 K/ L 0.30-0.82 H (test code = 415) EOSINOPHILS ABSOLUTE COUNT 0.09 K/ L 0.04-0.54 (BEAKER) (test code = 416) BASOPHILS ABSOLUTE COUNT (BEAKER) 0.10 K/ L 0.01-0.08 H (test code = 417) IMMATURE GRANULOCYTES-RELATIVE 1 % 0-1 PERCENT (BEAKER) (test code = 2801) [id number] 14:49:00 Test Item Value Reference Range Interpretation Comments MAGNESIUM (BEAKER) 2.2 mg/dL 1.6-2.6 Specimen slightly (test code = 627) hemolyzed [id number] 14:49:00 Test Item Value Reference Range Interpretation Comments PHOSPHORUS (BEAKER) 3.7 mg/dL 2.3-4.7 Specimen slightly (test code = 604) hemolyzed BASIC METABOLIC [id number] 14:49:00 Test Item Value Reference Range Interpretation Comments SODIUM (BEAKER) 142 meq/L 136-145 (test code = 381) POTASSIUM (BEAKER) 4.0 meq/L 3.5-5.1 Specimen slightly (test code = 379) hemolyzed CHLORIDE (BEAKER) 112 meq/L 98-107 H (test code = 382) CO2 (BEAKER) (test 18 meq/L 22-29 L code = 355) BLOOD UREA NITROGEN 16 mg/dL 7-21 (BEAKER) (test code = 354) CREATININE (BEAKER) 0.80 mg/dL 0.57-1.25 Specimen slightly (test code = 358) hemolyzed GLUCOSE RANDOM 205 mg/dL 70-105 H (BEAKER) (test code = 652) CALCIUM (BEAKER) 9.0 mg/dL 8.4-10.2 (test code = 697) EGFR (BEAKER) (test 98 mL/min/1.73 ESTIMA JAVIER GFR IS code = 1092) sq m NOT ACCURATE CREATININE CLEARANCE IN PREDICTING GLOMERULAR FILTRATION RATE . ESTIMATED GFR I S NOT APPLICABLE FOR DIALYSIS PATIEN TS. LACTIC ACID, ARTERIAL, WHOLE [id number] 14:43:00 Test Item Value Reference Range Interpretation Comments LACTATE BLOOD 4.5 mmol/L 0.5-2.2 H Specimen sligh tly ARTERIAL (2) (BEAKER) hemoly zed (test code = 2874) Effective 11/26/2015: Units/Reference Range ChangeNew: 0.5-2.2 mmol/L Previous: 5- 20 mg/dLRAD, CHEST, 1 VIEW, NON [id number] 14:32:00Reason for exam:->s./p OHSShould this be performed at the bedside?->YesFINAL REPORT Chest one view AP 06/13/2017 2:32 PM CLINICAL INDICATION: s./p OHS COMPARISON: 06/07/2017 IMPRESSION: Support hardware is in satisfactory radiographic position. Cardiomediastinal contours are stable. There is central pulmonary vasculature congestion without overt pulmonary edema. There is pulmonary hypoinflation, with bilateral multifocal subsegmental atelectasis. Sig mohini: Florentino Osei Verified Date/Time: 06/13/2017 14:32:50 Reading Location: [facility] [id number] Reading Room OXYGEN SATURATION, [id number] 14:06:00 Test Item Value Reference Range Interpretation Comments O2 SATURATION (MEASURED) (BEAKER) 64.9 % (test code = 1455) From distal port of IJ central venous catheterBLOOD GAS, [id number] 14:04:00 Test Item Value Reference Range Interpretation Comments PH ARTERIAL (BEAKER) (test code = 7.35 7.35-7.45 383) PCO2 ARTERIAL (BEAKER) (test code 38 mmHg 35-45 = 384) PO2 ARTERIAL (BEAKER) (test code 101 mmHg 80-90 H = 385) O2 SATURATION ARTERIAL (BEAKER) 97.5 % 96.0-97.0 H (test code = 386) HCO3 ARTERIAL (BEAKER) (test code 21 mmol/L 21-29 = 388) BASE EXCESS ARTERIAL (BEAKER) -4.7 mmol/L -2.0-3.0 L (test code = 387) PATIENT TEMPERATURE (BEAKER) 36.4 C (test code = 1818) FIO2 (BEAKER) (test code = 1819) 60.0 % THROMBOELASTOGRAPH (TEG)[id number] 12:58:00 Test Item Value Reference Range Interpretation Comments TEG ACTIVATED CLOTTING TIME 4.2 minutes 4.0-7.0 (BEAKER) (test code = 1407) TEG FIBRINOGEN ACTIVITY (BEAKER) 61.9 degrees 61.0-73.0 (test code = 1408) TEG PLT. AGGREGATION (BEAKER) 72.0 MM 55.0-65.0 H (test code = 1409) TGH ACTIVATED CLOTTING TIME 4.4 minutes 4.0-7.0 (BEAKER) (test code = 1411) TGH FIBRINOGEN ACTIVITY (BEAKER) 73.9 degrees 61.0-73.0 H (test code = 1412) TGH PLT. AGGREGATION (BEAKER) 65.4 MM 55.0-65.0 H (test code = 1413) [id number] 12:45:00 Test Item Value Reference Range Interpretation Comments ACTIVATED CLOTTING TIME 114 sec TEST ED AT [place] [address] ([facility]) (test code = [place] 441) [id number] 12:45:00 Test Item Value Reference Range Interpretation Comments ACTIVATED CLOTTING TIME 406 sec TEST ED AT [place] [address] ([facility]) (test code = [place] 441) [address] [id number] 12:45:00 Test Item Value Reference Range Interpretation Comments ACTIVATED CLOTTING TIME 466 sec TEST ED AT [place] [address] ([facility]) (test code = [place] 441) [address] [id number] 12:45:00 Test Item Value Reference Range Interpretation Comments ACTIVATED CLOTTING TIME 494 sec TEST ED AT [place] [address] ([facility]) (test code = [place] 441) [address] [id number] 12:45:00 Test Item Value Reference Range Interpretation Comments ACTIVATED CLOTTING TIME 472 sec TEST ED AT [place] [address] ([facility]) (test code = ESPERANZA Baeza [facility] 441) [address] PROTHROMBIN [id number] 12:20:00 Test Item Value Reference Range Interpretation Comments PROTIME (BEAKER) (test code = 20.1 seconds 11.7-14.7 H 759) INR (BEAKER) (test code = 370) 1.7 <=5.9 RECOMMENDED COUMADIN/WARFARIN INR THERAPY RANGESSTANDARD DOSE: 2.0 - 3.0 Includes: PROPHYLAXIS for venous thrombosis, systemic embolization; TREATMENT for venous thrombosis and/or pulmonary embolus.HIGH RISK: Target INR is 2.5-3.5 for patients with mechanical heart valves.[id number] 12:20:00 Test Item Value Reference Range Interpretation Comments FIBRINOGEN LEVEL (BEAKER) (test 335 mg/dl 225-434 code = 658) [id number] 12:20:00 Test Item Value Reference Range Interpretation Comments PARTIAL THROMBOPLASTIN TIME 32.2 seconds 22.5-36.0 (BEAKER) (test code = 760) PLATELET [id number] 12:12:00 Test Item Value Reference Range Interpretation Comments PLATELET COUNT (BEAKER) (test 152 K/CU MM 150-450 code = 756) SODIUM NA-STAT [id number] 11:56:00 Test Item Value Reference Range Interpretation Comments SODIUM (BEAKER) (test code = 381) 137 meq/L 135-148 POTASSIUM-STAT [id number] 11:56:00 Test Item Value Reference Range Interpretation Comments POTASSIUM (BEAKER) (test code = 4.3 meq/L 3.6-5.5 379) CALCIUM, [id number] 11:56:00 Test Item Value Reference Range Interpretation Comments CALCIUM IONIZED (BEAKER) (test 1.13 mmol/L 1.12-1.27 code = 698) PH, BLOOD (BEAKER) (test code = 7.38 1810) BLOOD GAS, [id number] 11:56:00 Test Item Value Reference Range Interpretation Comments PH ARTERIAL (BEAKER) (test code = 7.40 7.35-7.45 383) PCO2 ARTERIAL (BEAKER) (test code 39 mmHg 35-45 = 384) PO2 ARTERIAL (BEAKER) (test code 93 mmHg 80-90 H = 385) O2 SATURATION ARTERIAL (BEAKER) 97.4 % 96.0-97.0 H (test code = 386) HCO3 ARTERIAL (BEAKER) (test code 23 mmol/L 21-29 = 388) BASE EXCESS ARTERIAL (BEAKER) -1.6 mmol/L -2.0-3.0 (test code = 387) PATIENT TEMPERATURE (BEAKER) 36.1 C (test code = 1818) FIO2 (BEAKER) (test code = 1819) 98.0 % GLUCOSE-STAT [id number] 11:56:00 Test Item Value Reference Range Interpretation Comments GLUCOSE RANDOM (BEAKER) (test code 163 mg/dL 70-110 H = 652) HGB/HCT (H&H) - STAT [id number] 11:56:00 Test Item Value Reference Range Interpretation Comments HEMOGLOBIN (BEAKER) (test code = 11.0 g/dL 13.0-16.8 L 410) HEMATOCRIT (BEAKER) (test code = 32.0 % 40.0-50.0 L 411) SODIUM NA-STAT [id number] 11:37:00 Test Item Value Reference Range Interpretation Comments SODIUM (BEAKER) (test code = 381) 137 meq/L 135-148 BLOOD GAS, [id number] 11:37:00 Test Item Value Reference Range Interpretation Comments PH ARTERIAL (BEAKER) (test code = 7.41 7.35-7.45 383) PCO2 ARTERIAL (BEAKER) (test code 42 mmHg 35-45 = 384) PO2 ARTERIAL (BEAKER) (test code = 297 mmHg 80-90 H 385) O2 SATURATION ARTERIAL (BEAKER) 99.7 % 96.0-97.0 H (test code = 386) HCO3 ARTERIAL (BEAKER) (test code 26 mmol/L 21-29 = 388) BASE EXCESS ARTERIAL (BEAKER) 0.7 mmol/L -2.0-3.0 (test code = 387) PATIENT TEMPERATURE (BEAKER) (test 36.5 C code = 1818) FIO2 (BEAKER) (test code = 1819) 80.0 % GLUCOSE-STAT [id number] 11:37:00 Test Item Value Reference Range Interpretation Comments GLUCOSE RANDOM (BEAKER) (test code 128 mg/dL 70-110 H = 652) POTASSIUM-STAT [id number] 11:37:00 Test Item Value Reference Range Interpretation Comments POTASSIUM (BEAKER) (test code = 5.9 meq/L 3.6-5.5 H 379) HGB/HCT (H&H) - STAT [id number] 11:37:00 Test Item Value Reference Range Interpretation Comments HEMOGLOBIN (BEAKER) (test code = 10.5 g/dL 13.0-16.8 L 410) HEMATOCRIT (BEAKER) (test code = 31.0 % 40.0-50.0 L 411) BLOOD GAS, [id number] 11:15:00 Test Item Value Reference Range Interpretation Comments PH ARTERIAL (BEAKER) (test code = 7.38 7.35-7.45 383) PCO2 ARTERIAL (BEAKER) (test code 44 mmHg 35-45 = 384) PO2 ARTERIAL (BEAKER) (test code 380 mmHg 80-90 H = 385) O2 SATURATION ARTERIAL (BEAKER) 99.8 % 96.0-97.0 H (test code = 386) HCO3 ARTERIAL (BEAKER) (test code 26 mmol/L 21-29 = 388) BASE EXCESS ARTERIAL (BEAKER) -0.3 mmol/L -2.0-3.0 (test code = 387) PATIENT TEMPERATURE (BEAKER) 35.0 C (test code = 1818) FIO2 (BEAKER) (test code = 1819) 80.0 % GLUCOSE-STAT [id number] 11:15:00 Test Item Value Reference Range Interpretation Comments GLUCOSE RANDOM (BEAKER) (test code 139 mg/dL 70-110 H = 652) HGB/HCT (H&H) - STAT [id number] 11:15:00 Test Item Value Reference Range Interpretation Comments HEMOGLOBIN (BEAKER) (test code = 11.0 g/dL 13.0-16.8 L 410) HEMATOCRIT (BEAKER) (test code = 32.0 % 40.0-50.0 L 411) POTASSIUM-STAT [id number] 11:15:00 Test Item Value Reference Range Interpretation Comments POTASSIUM (BEAKER) (test code = 6.0 meq/L 3.6-5.5 HH 379) SODIUM NA-STAT [id number] 11:11:00 Test Item Value Reference Range Interpretation Comments SODIUM (BEAKER) (test code = 381) 136 meq/L 135-148 GLUCOSE-STAT [id number] 10:53:00 Test Item Value Reference Range Interpretation Comments GLUCOSE RANDOM (BEAKER) (test code 140 mg/dL 70-110 H = 652) HGB/HCT (H&H) - STAT [id number] 10:53:00 Test Item Value Reference Range Interpretation Comments HEMOGLOBIN (BEAKER) (test code = 11.1 g/dL 13.0-16.8 L 410) HEMATOCRIT (BEAKER) (test code = 33.0 % 40.0-50.0 L 411) SODIUM NA-STAT [id number] 10:52:00 Test Item Value Reference Range Interpretation Comments SODIUM (BEAKER) (test code = 381) 135 meq/L 135-148 POTASSIUM-STAT [id number] 10:52:00 Test Item Value Reference Range Interpretation Comments POTASSIUM (BEAKER) (test code = 4.9 meq/L 3.6-5.5 379) BLOOD GAS, [id number] 10:52:00 Test Item Value Reference Range Interpretation Comments PH ARTERIAL (BEAKER) (test code = 7.41 7.35-7.45 383) PCO2 ARTERIAL (BEAKER) (test code 40 mmHg 35-45 = 384) PO2 ARTERIAL (BEAKER) (test code 336 mmHg 80-90 H = 385) O2 SATURATION ARTERIAL (BEAKER) 99.8 % 96.0-97.0 H (test code = 386) HCO3 ARTERIAL (BEAKER) (test code 26 mmol/L 21-29 = 388) BASE EXCESS ARTERIAL (BEAKER) -0.3 mmol/L -2.0-3.0 (test code = 387) PATIENT TEMPERATURE (BEAKER) 32.0 C (test code = 1818) FIO2 (BEAKER) (test code = 1819) 80.0 % CALCIUM, [id number] 09:42:00 Test Item Value Reference Range Interpretation Comments CALCIUM IONIZED (BEAKER) (test 1.14 mmol/L 1.12-1.27 code = 698) PH, BLOOD (BEAKER) (test code = 7.43 1810) BLOOD GAS, [id number] 09:42:00 Test Item Value Reference Range Interpretation Comments PH ARTERIAL (BEAKER) (test code = 7.44 7.35-7.45 383) PCO2 ARTERIAL (BEAKER) (test code 37 mmHg 35-45 = 384) PO2 ARTERIAL (BEAKER) (test code = 292 mmHg 80-90 H 385) O2 SATURATION ARTERIAL (BEAKER) 99.7 % 96.0-97.0 H (test code = 386) HCO3 ARTERIAL (BEAKER) (test code 24 mmol/L 21-29 = 388) BASE EXCESS ARTERIAL (BEAKER) 0.3 mmol/L -2.0-3.0 (test code = 387) PATIENT TEMPERATURE (BEAKER) (test 36.4 C code = 1818) FIO2 (BEAKER) (test code = 1819) 100.0 % GLUCOSE-STAT [id number] 09:42:00 Test Item Value Reference Range Interpretation Comments GLUCOSE RANDOM (BEAKER) (test code 123 mg/dL 70-110 H = 652) HGB/HCT (H&H) - STAT [id number] 09:42:00 Test Item Value Reference Range Interpretation Comments HEMOGLOBIN (BEAKER) (test code = 13.1 g/dL 13.0-16.8 410) HEMATOCRIT (BEAKER) (test code = 39.0 % 40.0-50.0 L 411) SODIUM NA-STAT [id number] 09:41:00 Test Item Value Reference Range Interpretation Comments SODIUM (BEAKER) (test code = 381) 137 meq/L 135-148 POTASSIUM-STAT [id number] 09:41:00 Test Item Value Reference Range Interpretation Comments POTASSIUM (BEAKER) (test code = 4.4 meq/L 3.6-5.5 379) POCT-GLUCOSE [id number] 08:36:00 Test Item Value Reference Range Interpretation Comments POC-GLUCOSE METER 130 mg/dL 70-[address] [facility] 6720 (TRACEY) (test code = [place] 1538) [address] HEMOGLOBIN [id number] 11:15:00 Test Item Value Reference Range Interpretation Comments HEMOGLOBIN A1C (TRACEY) (test code = 6.7 % 4.3-6.1 H 368) RAD, CHEST, 2 [id number] 11:04:00Reason for Exam:->Pre-OpFINAL REPORT Chest x-ray, PA and lateral views Clinical History: Pre-Op Comparison: None Findings: Cardiac silhouette is enlarged. There is mild interstitial prominence which may reflect edema. No consolidation is identified. No pneumothorax, or effusion. Osseous structures are intact. Impression: Enlarged cardiac silhouette. Suspect mild interstitial edema. Signed: Rsoalio Luevano Verified Date/Time: 06/07/2017 11:04:57 Reading Location: [facility] Reading Room
[2022-08-12 15:07] VITALS: BMI 35.5
[2022-08-12] MEDS ORDERED: CEFTRIAXONE 1,000 MG in NA CHLORIDE 0.9% 50 ML IVPB SCH (15:17)
[2022-08-12] MEDS ORDERED: ACETAMINOPHEN 500 MG TAB PO PRN (15:17)
[2022-08-12] MEDS ORDERED: ONDANSETRON 4 MG/2 ML VIAL IV PRN (15:17)
--- NOTE | 2022-08-12 15:31 | P.HP ---
Certification for Inpatient Patient admitted to: Inpatient With expected LOS: >2 Midnights Patient will require the following post-hospital care: None Practitioner: I am a practitioner with admitting privileges, knowledge of patient current condition, hospital course, and medical plan of care. Services: Services provided to patient in accordance with Admission requirements found in Title 42 Section 412.3 of the Code of Federal Regulations Patient History Date of Service: 08/12/22 Reason for admission: abscess of left ear with facial cellulitis History of Present Illness: Mr. Miller is a 67 yo M with history of CAD s/p 3vCABG, HTN, and T2DM who presents with left ear erythema, swelling, and pain beginning on Tuesday and worsening throughout the week. He reports low grade fever. He says last week he had a sinus infection that he thought cleared up. He was seen by his PCP today in clinic and was sent to our facility for direct admission. ENT consulted. Labs and imaging pending. Patient stable at bedside. Allergies simvastatin Allergy (Verified 01/28/22 16:07) Hives Home Medications: Empagliflozin [Jardiance] 1 tab PO DAILY 01/28/22 Furosemide 1 tab PO DAILY 01/28/22 Metoprolol Succinate [Toprol Xl*] 1 tab PO DAILY 01/28/22 - Past Medical/Surgical History Has patient received pneumonia vaccine in the past: No Diabetic: Yes -: DM II -: CAD -: HTN -: triple bypass 05/2017 -: hernia repair 01/29/2022 - Family History Father -: Diabetes Sister -: Diabetes - Social History Smoking Status: Never smoker Alcohol use: Yes CD- Drugs: No Caffeine use: Yes Place of Residence: Home Review of Systems General: Fever Eyes: Unremarkable ENT: Ear Pain, As per HPI Respiratory: Unremarkable Cardiovascular: Unremarkable Gastrointestinal: Unremarkable Genitourinary: Unremarkable Musculoskeletal: Unremarkable Integumentary: As per HPI Neurological: Unremarkable Lymphatics: Unremarkable Physical Examination - Physical Exam General: Alert, In no apparent distress, Obese HEENT: Atraumatic, PERRLA, Mucous membr. moist/pink, Other (left ear erythema, swelling), EOMI, Sclerae nonicteric Neck: Supple, No LAD Respiratory: Normal air movement Cardiovascular: Regular rate/rhythm Capillary refill: <2 Seconds Gastrointestinal: Normal bowel sounds, No tenderness Musculoskeletal: No tenderness Integumentary: Other (left ear erythema and swelling, skin erythema, fluctuant area palpated) Neurological: Normal gait, Normal speech, Normal affect Assessment and Plan - Plan Assessment Suspected abscess of left ear and facial cellulitis Coronary artery disease Hypetension Type 2 diabetes mellitus Plan Suspected abscess of left ear and facial cellulitis - ENT consulted - CT Head/Neck pending - Initiate vancomycin and cefepime - Blood cultures pending Coronary artery disease - resume home medications Hypertension - resume home medications Type 2 diabetes mellitus - sliding scale insulin and accuchecks DVT ppx: SCDs Full code Discharge Plan: Home Plan to discharge in: 48 Hours - Advance Directives Does patient have a Living Will: No Does patient have a Durable POA for Healthcare: No - Code Status/Comfort Care Code Status Assessed: Yes (full code ) Critical Care: No Time Spent Managing Pts Care (In Minutes): 70
--- NOTE | 2022-08-12 15:49 | RAD REPORT ---
EXAM DESCRIPTION: CT - Head Brain W/Wo Con - 08/12/2022 3:34 pm CLINICAL HISTORY: left ear erythema swelling Pain and swelling COMPARISON: No comparisons TECHNIQUE: All CT scans are performed using dose optimization technique as appropriate and may inclu de automated exposure control or mA/KV adjustment according to patient size. FINDINGS: No intracranial hemorrhage, hydrocephalus or extra-axial fluid collection.No areas of brai n edema or evidence of midline shift. The paranasal sinuses and mastoids are clear. The calvarium is intact. Mild soft tissue swelling infe rior to the left ear adjacent to the left parotid gland. No pathologic post-contrast enhancement. IMPRESSION: No acute intracranial abnormality. No pathologic enhancement pattern. Nonspecific swelling/ tissue edema seen inferior to the left ear and adjacent to the left parotid gla nd.
--- NOTE | 2022-08-12 15:51 | RAD REPORT ---
EXAM DESCRIPTION: CT - Soft Tissue Neck W/Contr CLINICAL HISTORY: left ear erythema swelling Pain and swelling to the face. COMPARISON: No comparisons TECHNIQUE All CT scans are performed using dose optimization technique as appropriate and may includ e automated exposure control or mA/KV adjustment according to patient size. FINDINGS: There is significant soft tissue swelling involving the left parotid gland. The soft tissues about th e left ear are thickened and inflamed. No intrinsic or extrinsic neck mass. No prevertebral or soft tissue abscess. Mildly prominent presumed reactive nodes are seen in the neck submandibular and jugulodigastric regio ns. IMPRESSION: Left-sided proctitis is suspected. The inflammation extends to the left financial services auditor y canal.
[2022-08-12] MEDS ORDERED: VANCOMYCIN 2 GM in NA CHLORIDE 0.9% 500 ML IVPB ONE (16:00)
[2022-08-12] MEDS ORDERED: PNEUMOCOCCAL VACCINE 0.5 ML IMVAC ONE (16:00)
[2022-08-12 16:27] LABS: Absolute Lymphocytes (CBC) 1.4 K/uL (0.7-4.9); Hematocrit 45.4 % (39.6-49.0); Lymphocytes % 8.4 % (15.3-44.8); MCV 93.4 fL (80-100); MPV 7.5 fL (7.6-11.3); RBC Red Blood Cell Count 4.86 M/uL (4.33-5.43)
[2022-08-12] MEDS: INSULIN -REGULAR HUMAN 50 UNIT/0.5 ML ML SQ SCH ×2 (16:30→20:37)
[2022-08-12 16:42] LABS: Albumin 3.7 g/dL (3.4-5.0); Bilirubin Total 1.3 mg/dL (0.2-1.0); Potassium 3.8 mmol/L (3.5-5.1); Protein, Total 7.8 g/dL (6.4-8.2)
--- NOTE | 2022-08-12 17:35 | P.CNS ---
Date of Consult: 08/12/[address] Jung regarding patient prior to admission and reviewed photographs from his office. Reviewed CT images and radiology report - no clear sign of abscess on imaging. No significant ear canal, middle ear or mastoid involvement. No acute indication for surgery at this time. OK for PO diet per primary team. Continue IV Abx Full consult to follow.
[2022-08-12] MEDS ORDERED: CEFEPIME 1 GM/VIAL ONE (20:07)
[2022-08-12] MEDS ORDERED: NA CHLORIDE 0.9% 100 ML ONE (20:29)
[2022-08-12] MEDS: CEFEPIME 1 GM in NA CHLORIDE 0.9% 100 ML IV SCH (20:37)
[2022-08-13 01:57] VITALS: O2SAT 96
[2022-08-13 03:14] LABS: Absolute Lymphocytes (CBC) 1.1 K/uL (0.7-4.9); Hematocrit 44.4 % (39.6-49.0); Lymphocytes % 7.8 % (15.3-44.8); MCV 93.8 fL (80-100); MPV 7.7 fL (7.6-11.3); RBC Red Blood Cell Count 4.74 M/uL (4.33-5.43)
[2022-08-13 03:26] LABS: Potassium 4.1 mmol/L (3.5-5.1)
[2022-08-13] MEDS: VANCOMYCIN 2 GM in NA CHLORIDE 0.9% 500 ML IVPB SCH ×2 (04:37→16:07)
[2022-08-13] MEDS: INSULIN -REGULAR HUMAN 50 UNIT/0.5 ML ML SQ SCH ×4 (07:30→20:19)
[2022-08-13] MEDS ORDERED: CEFEPIME 1 GM/VIAL ONE ×2 (08:40→20:19)
[2022-08-13] MEDS: CEFEPIME 1 GM in NA CHLORIDE 0.9% 100 ML IV SCH ×2 (08:41→20:18)
[2022-08-13] MEDS ORDERED: NA CHLORIDE 0.9% 100 ML ONE ×2 (08:41→20:18)
--- NOTE | 2022-08-13 15:32 | P.CNS ---
Date of Consult: 08/13/22 Consultation requested by hospitalist service for otitis externa History of present illness: Yonis Miller is a 67-year-old with past medical history of diabetes, hypertension, coronary artery disease who is is in his usual state of health when on August 10 he noted some redness of the left external ear but did not have significant pain. He thought perhaps he had gotten an insect bite or bee sting but did not recall any specific injury. He denies any known trauma to the external ear. He does not recall any pustule or other prior skin abnormality. The following day his symptoms were progressive and he developed some swelling on the left side of the face. He had some discomfort and took some wanc-jtl-vjprcek pain medication at home. On the following day he sought outpatient care with his PCP, Dr. Jung, for progressive symptoms. Due to the severity of the findings, imaging and IV antibiotics was recommended and the patient was sent to the hospital for treatment. The patient does not recall any prior similar episodes. He noted that the redness and rash seem to be extending towards the confucianism and left scal p. Today he began having redness and swelling of the right scalp which is similar in appearance to that of the left face but is not specifically contiguous. However, he does not notice any blisters or wounds of the skin. He does have a history of zoster/shingles on other parts of the body but says this is not painful the way that condition was. He does not typically check his blood sugar at home but thinks his last hemoglobin A1c was around 7. He does take his home diabetes medications as prescribed including metformin and Jardiance. The patient did have an upper respiratory infection about 2 weeks ago with expected congestion, excess mucus, coughing, nose blowing but took jqse-bjp-yibdwtq cold remedies and had improvement over about 10 days. He has minimal residual symptoms Past medical/surgical history: Diabetes, hypertension, hyperlipidemia, coronary artery disease. Coronary bypass surgery. Inguinal hernia repair Allergies: simvastatin Current medication list is reviewed from the medical chart. Current antibiotics include cefepime and vancomycin Social history: No tobacco, monthly alcohol. No illicit drugs Review of systems as noted from admission history and physical and is largely unchanged Physical exam patient is in no acute distress. He is alert and oriented. The left external ear including the ear lobe is moderately to severely erythematous with edema of the skin but no palpable fluctuance. The area is very minimally tender. The left meatus does not appear swollen. The left canal grossly does not appear swollen though otoscopic exam is not performed. There is mild to moderate edema of the left lower eyelid with erythema extending across the medial cheek and onto the left cutaneous upper lip. There is very minimal tenderness to the skin of the left cheek and the scalp. The right scalp has an area of about 10 cm diameter with edema and redness but no discrete pustules, no vesicles, no skin lacerations. This area is not significantly tender. The patient's face appears mildly asymmetric with some suggestion of left facial weakness though this may be due simply to the swelling of the soft tissues. Patient is able to close his eye completely without significant effort. Data: Patient's laboratory studies from yesterday and today are reviewed. His white count appears to be improving but is yet to normalize. The CT images were previously reviewed yesterday and there is no evidence of abnormalities of the mastoid, middle ear, or paranasal sinuses. Differential diagnosis: This could represent simple cellulitis of the external ear with extension onto the left face. Given the lack of vesicles, rash and significant pain, a diagnosis of zoster is less likely. The patient does not have the degree of swelling of the deeper soft tissues, trismus or degree of pain that would typically be seen with parotitis. Based on the CT findings, extension of mastoiditis is not likely. Relapsing polychondritis can present with similar exam findings as noted in the external ear but typically spares the earlobe which is definitely involved in current abnormal physical findings. Assessment: Cellulitis of the external ear and face and scalp Recommendations: Continue IV antibiotics. Monitor for clinical improvement. If not improving with antibiotics, may consider outpatient follow-up with dermatology. Clinically, I do not see any evidence of progression into soft tissue abscess based on physical exam and no acute plans for surgery are made at this time. Continue medical management.
--- NOTE | 2022-08-13 22:05 | P.PN ---
Date of Service: 08/13/22 Subjective: overall feels better swelling and facial pain about the same / maybe slight improvement noticed some redness of scalp / within hair line, with some increased sensitivity ROS: A complete review of systems was performed and is negative except as mentioned above Physical Exam: Gen: NAD, AOx3 HEENT: normal conjunctiva, significant erythema/swelling of entire left ear, and surrounding soft tissue; mild tenderness on palpation of parotid gland on left; swelling extends medially with cheek/periorbital swelling now with some erythema involving scalp CV: regular rate & rhythm, no edema Pulm: non-labored respirations, clear bilaterally Neuro: normal speech, normal affect, moves all extremities vitals reviewed Problem List Left parotitis vs left facial cellulitis CAD HTN NIDDM2 CT head/neck: swelling of parotid gland, no abscess suspect parotitis vs cellulitis pt not as tender as one would expect; however some may only have swelling with mild pain unclear why having erythema on scalp now continue empiric IV antibiotics ENT consulted no burning pain, no ulcers / vesicles etc, do not suspect zoster / lwa vides - has some left lower face droop, but likely more due to amount of selling than true facial weakness continue home chronic meds Code: full Dispo: home, ~1-2 days
[2022-08-14 02:52] LABS: Absolute Lymphocytes (CBC) 1.4 K/uL (0.7-4.9); Hematocrit 42.6 % (39.6-49.0); Lymphocytes % 16.3 % (15.3-44.8); MPV 7.6 fL (7.6-11.3); RBC Red Blood Cell Count 4.53 M/uL (4.33-5.43)
[2022-08-14 03:10] LABS: Potassium 4.3 mmol/L (3.5-5.1)
[2022-08-14] MEDS: VANCOMYCIN 2 GM in NA CHLORIDE 0.9% 500 ML IVPB SCH (03:55)
[2022-08-14] MEDS: INSULIN -REGULAR HUMAN 50 UNIT/0.5 ML ML SQ SCH ×2 (07:30→11:30)
[2022-08-14] MEDS ORDERED: CEFEPIME 1 GM/VIAL ONE (08:04)
[2022-08-14] MEDS ORDERED: NA CHLORIDE 0.9% 100 ML ONE (08:08)
[2022-08-14] MEDS: CEFEPIME 1 GM in NA CHLORIDE 0.9% 100 ML IV SCH (08:58)
[2022-08-14 13:31] VITALS: BP 141/79; TEMP 97.2
--- NOTE | 2022-08-23 23:30 | P.DS ---
Admission Date: 08/12/22 Discharge Date: 08/14/22 Disposition: ROUTINE DISCHARGE Reason for Admission: abscess of left ear with facial cellulitis Consultations: ENT - Dr. Lamar Brief History of Present Illness: 67 yo M with history of CAD s/p 3vCABG, HTN, and T2DM who presents with left ear erythema, swelling, and pain beginning on Tuesday and worsening throughout the week. He reports low grade fever. He says last week he had a sinus infection that he thought cleared up. He was seen by his PCP today in clinic and was sent to our facility for direct admission. ENT consulted. Labs and imaging pending. Patient stable at bedside. Hospital Course: Problem List Left parotitis vs left facial cellulitis CAD HTN Patient presented with swelling, erythema, and pain of his left face/ear. CT noted swelling of and around his parotid gland without any abscess. He was treated empirically with cefepime and vancomycin. He was seen by Dr. Lamar, ENT, who recommended continued medical management, no indication for surgery. Patient improved and was deemed stable for discharge home. His leukocytosis resolved and remained afebrile. Discharged with 12 more days of Augmentin, to complete 2 weeks total of antibiotics. Follow up with your PCP in ~1 week. Vital Signs/Physical Exam: Temp Pulse Resp BP Pulse Ox 97.2 F 83 18 141/79 H 96 08/14/22 12:00 08/14/22 12:00 08/14/22 12:00 08/14/22 12:00 08/14/22 12:00 Physical Exam: Gen: NAD, AOx3 HEENT: normal conjunctiva, mild erythema of left face -ear / lower jaw, minimal tenderness along parotid gland. minimal erythema on right anterior scalp CV: regular rate & rhythm, no edema Pulm: non-labored respirations, clear bilaterally Neuro: normal speech, normal affect, moves all extremities Laboratory Data at Discharge: WBC 8.90 K/uL (4.3-10.9) 08/14/22 02:33 Hgb 14.4 g/dL (13.6-17.9) 08/14/22 02:33 Hct 42.6 % (39.6-49.0) 08/14/22 02:33 Plt Count 164 K/uL (152-406) 08/14/22 02:33 Sodium 139 mmol/L (136-145) 08/14/22 02:33 Potassium 4.3 mmol/L (3.5-5.1) 08/14/22 02:33 BUN 18 mg/dL (7-18) 08/14/22 02:33 Creatinine 0.65 mg/dL (0.70-1.30) L 08/14/22 02:33 Glucose 129 mg/dL (74-106) H 08/14/22 02:33 Total Bilirubin 1.3 mg/dL (0.2-1.0) H 08/12/22 16:13 AST 16 U/L (15-37) 08/12/22 16:13 ALT 24 U/L (16-61) 08/12/22 16:13 Alkaline Phosphatase 83 U/L (45-117) 08/12/22 16:13 Home Medications: Empagliflozin [Jardiance] 1 tab PO DAILY 01/28/22 Furosemide 1 tab PO DAILY 01/28/22 Metoprolol Succinate [Toprol Xl*] 1 tab PO DAILY 01/28/22 Amox/Clavulanate [Augmentin 875-125 Tab] 875 mg PO BID 12 Days #24 tab 08/14/22 New Medications: Amox/Clavulanate [Augmentin 875-125 Tab] 875 mg PO BID 12 Days #24 tab Physician Discharge Instructions: Patient presented with swelling, erythema, and pain of his left face/ear. CT noted swelling of and around his parotid gland without any abscess. He was treated empirically with cefepime and vancomycin. He was seen by Dr. Lamar, ENT, who recommended continued medical management, no indication for surgery. Patient improved and was deemed stable for discharge home. His leukocytosis r esolved and remained afebrile. Discharged with 12 more days of Augmentin, to complete 2 weeks total of antibiotics. Follow up with your PCP in ~1 week. Time spent managing pt's care (in minutes): 45
== END 2022-08-14 14:45 | disposition home or self-care (01) | DRG 603 ==
LOC: 2ND 14:37
PROVIDERS: ADMIT Hospitalist; ATTEND Hospitalist
DX: L03.211 Cellulitis of face (principal); H66.42 Suppurative otitis media, unspecified, left ear; I10 Essential (primary) hypertension; E11.9 Type 2 diabetes mellitus without complications; E78.5 Hyperlipidemia, unspecified; E66.9 Obesity, unspecified; I25.10 Atherosclerotic heart disease of native coronary artery without angina pectoris; Z95.1 Presence of aortocoronary bypass graft; Z88.8 Allergy status to other drugs, medicaments and biological substances; Z68.35 Body mass index [BMI] 35.0-35.9, adult; Z79.899 Other long term (current) drug therapy; Z20.822 Contact with and (suspected) exposure to COVID-19
CPT/HCPCS: 36415; 70470; 70491; 80048; 80053; 80202; 82565; 82947; 83605; 85025; 86140; 87040; 87811; G0378; G0379; J0692; J3370; J7040; Q9967

== ENCOUNTER 2022-10-18 07:00 | Day surgery (SDC) | payer BC ==
--- NOTE | 2022-10-15 14:02 | RAD REPORT ---
EXAM DESCRIPTION: Nati Delatorre (2 Views)10/15/2022 1:49 pm CLINICAL HISTORY: Preop for colonoscopy. Coronary arterial disease COMPARISON: 2021 FINDINGS: The lungs appear clear of acute infiltrate. The heart is normal size. Postsurgical changes involve the chest IMPRESSION: No acute abnormalities displayed
[2022-10-15 14:31] LABS: Absolute Lymphocytes (CBC) 1.9 K/uL (0.7-4.9); Hematocrit 45.8 % (39.6-49.0); MCV 94.1 fL (80-100); MPV 8.4 fL (7.6-11.3); RBC Red Blood Cell Count 4.87 M/uL (4.33-5.43)
[2022-10-15 15:03] LABS: Potassium 4.4 mEq/L (3.5-5.1)
[2022-10-18] MEDS ORDERED: NA CHLORIDE 0.9% 1,000 ML ONE (07:35)
[2022-10-18] MEDS ORDERED: propofoL 200 MG/20 ML VIAL IV ONE ×2 (08:05→08:27)
[2022-10-18] MEDS ORDERED: LIDOCAINE 1% MPF 5 ML VIAL ONE (08:05)
[2022-10-18 11:08] VITALS: BP 111/57; TEMP 98.7; O2SAT 96
--- NOTE | 2022-10-18 12:35 | EKG ---
Test Date: 2022-10-15 Test Time: 13:30:22 Bird Cage Assembler: RYLEE MEASUREMENT RESULTS: Intervals: Rate: 74 NE: 188 QRSD: 184 QT: 462 QTc: 512 Branch: P: 80 NE: 188 QRS: -52 T: 105 INTERPRETIVE STATEMENTS: Sinus rhythm with occasional premature ventricular complexes and premature atrial complexes Left axis deviation Left bundle branch block Abnormal ECG No previous ECG available for comparison Electronically Signed On 10-18-22 12:28:16 CDT by Wade Bartholomew
== END 2022-10-18 09:45 | disposition home or self-care (01) ==
LOC: OR 07:00
PROVIDERS: ATTEND Surgery
PROC: 0DJD8ZZ Inspection of Lower Intestinal Tract, Via Natural or Artificial Opening Endoscopic (ICD-10-PCS; principal; 2022-10-18 08:30)
DX: Z12.11 Encounter for screening for malignant neoplasm of colon (principal); K57.30 Diverticulosis of large intestine without perforation or abscess without bleeding; K64.8 Other hemorrhoids; I10 Essential (primary) hypertension; I48.91 Unspecified atrial fibrillation; I25.10 Atherosclerotic heart disease of native coronary artery without angina pectoris; G47.33 Obstructive sleep apnea (adult) (pediatric); E11.9 Type 2 diabetes mellitus without complications; E66.9 Obesity, unspecified; Z68.33 Body mass index [BMI] 33.0-33.9, adult; Z95.1 Presence of aortocoronary bypass graft; Z99.81 Dependence on supplemental oxygen; Z79.899 Other long term (current) drug therapy; Z88.8 Allergy status to other drugs, medicaments and biological substances
CPT/HCPCS: 36415; 71046; 80048; 82947; 85025; 93005; J2001; J2704; J7030